=== PATIENT | female | born 1965 | race Two or more races ===

== ENCOUNTER 2019-06-24 14:08 | Emergency (ER) | payer MEDICARE, MEDICAID ==
[~2019-06-24 14:08] MED LIST: BENA5TAB14; HYDR-1421; METF850T; PIOG30TA20
[2019-06-24 15:15] LABS: Basophils # (auto) 0.1 uL; Basophils % (auto) 1.3 % (0.0-2.0); Eosinophils # (auto) 0.2 uL; Eosinophils % (auto) 2.4 % (0.0-7.0); Hematocrit 41.8 % (36.0-46.0); Hemoglobin 13.9 g/dL (12.2-16.2); Lymphocytes # (auto) 2.4 uL; Lymphocytes % (auto) 24.6 % (10.0-50.0); Mean Corpuscular Hemoglobin 27.3 pg (28.0-32.0); Mean Corpuscular Hgb Conc. 33.2 g/dL (32.0-36.0); Mean Corpuscular Volume 82.3 fL (80.0-100.0); Monocytes # (auto) 0.6 uL; Monocytes % (auto) 6.2 % (0.0-12.0); Neutrophils # (auto) 6.3 uL; Neutrophils % (auto) 65.5 % (37.0-80.0); Platelet Count (auto) 321 10^3/uL (140-450); Red Blood Cells 5.08 10^6/uL (4.0-5.20); Red Cell Distribution Width 14.6 % (11.8-14.3); White Blood Cell 9.6 10^3/uL (4.4-10.8)
[2019-06-24 15:31] LABS: Alanine Aminotransferase 35 U/L (13-56); Albumin 3.2 g/dL (3.4-5.0); Anion Gap 10 (5-15); Blood Urea Nitrogen 58 mg/dL (7-18); Calcium 8.9 mg/dL (8.5-10.1); Carbon Dioxide 24 mmol/L (21-32); Chloride 104 mmol/L (98-107); Glucose 151 mg/dL (74-106); Magnesium 2.3 mg/dL (1.6-2.6); Potassium 4.2 mmol/L (3.5-5.1); Sodium 138 mmol/L (136-145)
[2019-06-24 15:36] LABS: Alkaline Phosphatase 149 U/L (45-117); Aspartate Aminotransferase 58 U/L (15-37); BUN/Creatinine Ratio 41.4; Bilirubin, Total 0.4 mg/dL (0.2-1.0); GFR African American 50 mL/min; GFR Non-African American 41 mL/min; Total Protein 7.9 g/dL (6.4-8.2)
[2019-06-24] MEDS ORDERED: SODIUM CHLORIDE 0.9% 1,000 ML IV ONE (15:55)
[2019-06-24 16:35] LABS: INR 0.97 (0.9-1.15); Partial Thromboplastin Time 29.3 sec (23.64-32.05)
[2019-06-24] MEDS ORDERED: MORPHINE SULF INJ 2 MG/ML SYRINGE 1ML IV ONE (17:00)
[2019-06-24] MEDS ORDERED: ONDANSETRON HCL 4 MG/2 ML VIAL IV ONE (17:00)
[2019-06-24] MEDS ORDERED: SODIUM CHLORIDE 0.9% 500 ML IV ONE (17:00)
[2019-06-24 18:45] VITALS: BP 124/55
== END 2019-06-24 19:05 | disposition home or self-care (01) ==
LOC: ER 14:08
DX: R07.9 Chest pain, unspecified (principal); E11.21 Type 2 diabetes mellitus with diabetic nephropathy; E46 Unspecified protein-calorie malnutrition; I25.10 Atherosclerotic heart disease of native coronary artery without angina pectoris; I10 Essential (primary) hypertension; I25.2 Old myocardial infarction; F17.210 Nicotine dependence, cigarettes, uncomplicated; F12.90 Cannabis use, unspecified, uncomplicated; Z98.61 Coronary angioplasty status; Z79.84 Long term (current) use of oral hypoglycemic drugs; Z89.512 Acquired absence of left leg below knee; Z89.511 Acquired absence of right leg below knee
CPT/HCPCS: 36415; 71045; 80053; 83735; 84443; 84484; 85025; 85379; 85610; 85730; 93005; 94761; 96374; 99284; J2405; J7030; J7040; 96361

== ENCOUNTER 2020-01-08 10:45 | Inpatient (IN) | payer MEDICARE, MEDICAID ==
[~2020-01-08] VITALS: Ht 152.4 cm; Wt 101.6 kg
[2020-01-08 11:47] LABS: Basophils # (auto) 0.1 10 ^3/uL (0-0.2); Basophils % (auto) 0.9 % (0.0-2.0); Eosinophils # (auto) 0.3 10 ^3/uL (0-0.8); Eosinophils % (auto) 2.9 % (0.0-7.0); Hematocrit 43.8 % (36.0-46.0); Hemoglobin 14.4 g/dL (12.2-16.2); Lymphocytes # (auto) 1.7 10 ^3/uL (0.4-5.4); Lymphocytes % (auto) 18.2 % (10.0-50.0); Mean Corpuscular Hemoglobin 27.8 pg (28.0-32.0); Mean Corpuscular Volume 84.5 fL (80.0-100.0); Monocytes # (auto) 0.4 10 ^3/uL (0-1.3); Monocytes % (auto) 4.8 % (0.0-12.0); Neutrophils # (auto) 6.8 10 ^3/uL (1.6-8.6); Neutrophils % (auto) 73.2 % (37.0-80.0); Platelet Count (auto) 316 10^3/uL (140-450); Red Blood Cells 5.19 10^6/uL (4.0-5.20); Red Cell Distribution Width 14.7 % (11.8-14.3); White Blood Cell 9.3 10^3/uL (4.4-10.8)
[2020-01-08 12:03] LABS: Albumin 3.4 g/dL (3.4-5.0); Calcium 9.5 mg/dL (8.5-10.1); Magnesium 2.6 mg/dL (1.6-2.6); Potassium 4.3 mmol/L (3.5-5.1)
[2020-01-08 12:08] LABS: BUN/Creatinine Ratio 23.1; Bilirubin, Total 0.3 mg/dL (0.2-1.0); Total Protein 8.6 g/dL (6.4-8.2)
[2020-01-08] MEDS ORDERED: ONDANSETRON HCL 4 MG/2 ML VIAL IV ONE (13:45)
[2020-01-08] MEDS ORDERED: SODIUM CHLORIDE 0.9% 1,000 ML IV SCH (14:39)
[2020-01-08] MEDS ORDERED: traMADol HCL 50 MG TAB PO PRN (14:45)
[2020-01-08] MEDS ORDERED: LACTULOSE 20Gm/30ML SOLN PO PRN (14:45)
[2020-01-08] MEDS ORDERED: DEXTROSE (50%) 50ML SYRG IV PRN (14:45)
[2020-01-08] MEDS ORDERED: ALBUTEROL SULF 2.5 MG/0.5ML(0.5%) NEB SOLN NEB PRN (14:45)
[2020-01-08] MEDS ORDERED: PROMETHAZINE HCL 25 MG/ML 1ML IV PRN (14:45)
[2020-01-08] MEDS ORDERED: TEMAZEPAM 15 MG CAP PO PRN (14:45)
[2020-01-08] MEDS ORDERED: MORPHINE SULF INJ 2 MG/ML SYRINGE 1ML IV PRN (14:45)
[2020-01-08] MEDS ORDERED: NITROGLYCERIN 0.4 MG SL TAB SL PRN (14:45)
--- NOTE | 2020-01-08 16:01 | NUR ---
Telemetry admit from ER [facility] admitted to Telemetry unit after SBAR received. Patient oriented to Mehreen Clarke, primary RN, unit, room, bed, and unit policies regarding patient care and visiting hours. Patient now on continuous telemetry monitoring, tele box #7 and telemetry reading on arrival to unit is sinus bradycardia at 59 bpm. Patient placed on bedside oxygen, weighed by bedscale and encouraged to call if they need something. All questions and concerns addressed, patient verbalized understanding. POC discussed with patient, patient is comfortable at this time. Patient is A & O x 4. No s/s of distress. Bed is in lowest, locked position call light within reach. Son is at bedside. Will continue to monitor Q1h and PRN.
--- NOTE | 2020-01-08 16:15 | NUR ---
VITAL SIGNS UPON ARRIVAL BP 107/69, HR 59, O2 96% on 2L, RR 18, T. 97.9. No s/s of distress at this time, patient comfortable.
--- NOTE | 2020-01-08 16:30 | NUR ---
Dr. Iglesias at bedside. Orders received, read back and verified regarding home medications to be added to regimen. Will medicate per orders.
[2020-01-08] MEDS ORDERED: ATOR10TA52 PO (16:53)
[2020-01-08] MEDS ORDERED: INSLANTI SC (16:53)
[2020-01-08] MEDS ORDERED: CLOP75TA41 PO (16:53)
[2020-01-08] MEDS ORDERED: ISOS30TA4 PO (16:53)
[2020-01-08] MEDS ORDERED: FURO40TA4 PO (16:53)
[2020-01-08] MEDS ORDERED: INSUINJ18 SC (16:53)
[2020-01-08] MEDS ORDERED: CHOL20007 PO (16:53)
[2020-01-08] MEDS ORDERED: ESCI20TA PO (16:53)
[2020-01-08] MEDS ORDERED: LEVO25TA6 PO (16:53)
[2020-01-08] MEDS ORDERED: CAR3125T PO (16:53)
[2020-01-08] MEDS ORDERED: ASPI81CH43 PO (16:53)
[2020-01-08] MEDS ORDERED: ALPR0.25 PO (16:53)
[2020-01-08] MEDS ORDERED: LISI2.5T47 PO (16:53)
[2020-01-08] MEDS ORDERED: ACCU-CHEK COMFORT CURVE STRIP VI SCH (17:00)
[2020-01-08] MEDS ORDERED: InsuLIN REG 1unit/0.01ml Soln (100units/ml) SC SCH (17:00)
[2020-01-08 17:24] VITALS: BP 107/69
[2020-01-08] MEDS ORDERED: IPRATROPIUM BROM 0.5 MG/2.5ML INH SOL NEB SCH (18:00)
[2020-01-08] MEDS ORDERED: ALBUTEROL SULF 2.5 MG/0.5ML(0.5%) NEB SOLN NEB SCH (18:00)
--- NOTE | 2020-01-08 19:30 | NUR ---
Opening Shift Note Assumed care of patient, awake and alert. Son at bedside. Patient stating she no longer wants to stay and leave AMA. Spoke with patient about concerns and risks if leaving AMA. Patient verbalized understanding and states she would still like to leave. Informed patient that I would let MD know.
--- NOTE | 2020-01-08 20:17 | NUR ---
AMA Note [facility] states they want to leave the hospital Against Medical Advice (AMA). Patient encouraged to stay for further treatment/stabilization. MD Phan notified of patient's wishes. Patient advised of the risks and benefits of leaving AMA. Patient verbalized understanding. Patient encouraged to return to the ER if symptoms do not improve or worsen. IV removed, catheter intact, pressure dressing applied. Tele monitor removed and returned to tele room, spoke with Marlin.
[2020-01-08] MEDS ORDERED: CARVEDILOL 3.125 MG TAB PO SCH (22:00)
[2020-01-08] MEDS ORDERED: ATORVASTATIN 20 MG TAB PO SCH (22:00)
[2020-01-09] MEDS ORDERED: LEVOTHYROXINE SODIUM 25 MCG TAB PO SCH (07:00)
[2020-01-09] MEDS ORDERED: CLOPIDOGREL BISULFATE 75 MG TAB PO SCH (10:00)
[2020-01-09] MEDS ORDERED: FUROSEMIDE 40 MG TAB PO SCH (10:00)
[2020-01-09] MEDS ORDERED: NITROGLYCERIN 0.2MG/HR TOPICAL PATCH TD SCH (10:00)
[2020-01-09] MEDS ORDERED: ENOXAPARIN SOD 40 MG/0.4 ML SYRINGE SC SCH (10:00)
[2020-01-09] MEDS ORDERED: ASPirin 81 mg TAB PO SCH (10:00)
[2020-07-05] MEDS ORDERED: ATOR10TA52 PO (13:00)
[2020-07-05] MEDS ORDERED: PANT40T PO (13:00)
[2020-07-05] MEDS ORDERED: SACU1TAB PO (13:00)
[2020-07-05] MEDS ORDERED: LEVO50TA7 PO (13:00)
[2020-07-05] MEDS ORDERED: FURO40TA4 PO (13:00)
[2020-07-05] MEDS ORDERED: CLOP75TA41 PO (13:00)
[2020-07-05] MEDS ORDERED: CAR3125T PO (13:00)
[2020-07-05] MEDS ORDERED: ASPI81CH43 PO (13:00)
== END 2020-01-08 20:00 | disposition left against medical advice (07) | DRG 204 ==
LOC: ER 10:45 → TELE 10:46 → TELE-EAST 16:00
PROVIDERS: ADMIT Internal Medicine; ATTEND Internal Medicine
DX: R06.02 Shortness of breath (principal); Z68.41 Body mass index [BMI] 40.0-44.9, adult; E03.9 Hypothyroidism, unspecified; E11.9 Type 2 diabetes mellitus without complications; E78.5 Hyperlipidemia, unspecified; I10 Essential (primary) hypertension; I25.10 Atherosclerotic heart disease of native coronary artery without angina pectoris; I25.2 Old myocardial infarction; Z79.4 Long term (current) use of insulin; Z80.9 Family history of malignant neoplasm, unspecified; Z82.49 Family history of ischemic heart disease and other diseases of the circulatory system; Z83.3 Family history of diabetes mellitus; Z86.73 Personal history of transient ischemic attack (TIA), and cerebral infarction without residual deficits; Z87.891 Personal history of nicotine dependence; Z89.511 Acquired absence of right leg below knee; Z89.512 Acquired absence of left leg below knee; Z95.5 Presence of coronary angioplasty implant and graft; Z98.51 Tubal ligation status; Z53.29 Procedure and treatment not carried out because of patient's decision for other reasons; Z79.899 Other long term (current) drug therapy; E66.01 Morbid (severe) obesity due to excess calories
CPT/HCPCS: 36415; 71045; 80053; 82550; 82962; 83036; 83735; 83880; 84443; 84484; 85025; 85379; 85652; 86141; 93005; G0378; J1815; J2405

== ENCOUNTER 2020-06-15 07:21 | Inpatient (IN) | payer MEDICARE, MEDICAID ==
[~2020-06-15] VITALS: Ht 154.9 cm; Wt 123.0 kg
[~2020-06-15 07:21] MED LIST changes: +ALPR0.25 PO; +ASPI81CH43 PO; +ATOR10TA52 PO; -BENA5TAB14; +CAR3125T PO; +CHOL20007 PO; +CLOP75TA41 PO; +ESCI20TA PO; +FURO40TA4 PO; -HYDR-1421; +INSLANTI SC; +INSUINJ18 SC; +ISOS30TA4 PO; +LEVO25TA6 PO; +LISI2.5T47 PO; -METF850T; -PIOG30TA20
[2020-06-15] MEDS ORDERED: SODIUM CHLORIDE 0.9% 1,000 ML IV ONE ×2 (08:24→13:16)
[2020-06-15] MEDS ORDERED: FUROSEMIDE 20 MG/2 ML VIAL IV ONE (08:30)
[2020-06-15] MEDS ORDERED: MORPHINE SULFATE 4 MG/ML SYR/VIAL IV PRN ×2 (08:30→13:30)
[2020-06-15] MEDS ORDERED: SPIRONOLACTONE 25 MG TAB PO ONE (08:30)
[2020-06-15 08:34] LABS: Basophils # (auto) 0.1 10 ^3/uL (0-0.2); Basophils % (auto) 0.6 % (0.0-2.0); Eosinophils # (auto) 0.2 10 ^3/uL (0-0.8); Eosinophils % (auto) 1.6 % (0.0-7.0); Hematocrit 40.5 % (36.0-46.0); Lymphocytes # (auto) 1.5 10 ^3/uL (0.4-5.4); Lymphocytes % (auto) 11.3 % (10.0-50.0); Mean Corpuscular Hemoglobin 27.1 pg (28.0-32.0); Mean Corpuscular Hgb Conc. 32.1 g/dL (32.0-36.0); Mean Corpuscular Volume 84.2 fL (80.0-100.0); Monocytes # (auto) 0.6 10 ^3/uL (0-1.3); Monocytes % (auto) 4.8 % (0.0-12.0); Neutrophils # (auto) 10.7 10 ^3/uL (1.6-8.6); Neutrophils % (auto) 81.7 % (37.0-80.0); Platelet Count (auto) 365 10^3/uL (140-450); Red Blood Cells 4.81 10^6/uL (4.0-5.20); Red Cell Distribution Width 15.5 % (11.8-14.3)
[2020-06-15 08:36] LABS: Urine WBC None Seen /hpf (0 - 5)
[2020-06-15 08:43] LABS: Urine Bacteria FEW /hpf (None Seen); Urine Blood Negative /uL (Negative); Urine Hyaline Cast FEW /lpf (0 - 2); Urine Mucus FEW (None Seen); Urine Specific Gravity 1.014 (1.001-1.035)
[2020-06-15] MEDS ORDERED: ALBUTEROL SULF 2.5 MG/0.5ML(0.5%) NEB SOLN NEB ONE (08:45)
[2020-06-15] MEDS ORDERED: IPRATROPIUM BROM 0.5 MG/2.5ML INH SOL NEB ONE (08:45)
[2020-06-15 08:47] LABS: Albumin 3.4 g/dL (3.4-5.0)
[2020-06-15 08:52] LABS: Bilirubin, Total 0.5 mg/dL (0.2-1.0); INR 1.07 (0.9-1.15); Partial Thromboplastin Time 30.5 sec (23.0-31.2); Total Protein 8.3 g/dL (6.4-8.2)
[2020-06-15] MEDS ORDERED: ASPirin 81 mg TAB PO ONE (13:15)
[2020-06-15] MEDS ORDERED: ENOXAPARIN SOD 100 MG/1 ML SYRINGE SC ONE (13:15)
[2020-06-15] MEDS ORDERED: LORazepam 2MG/ML-1ML VIAL IV PRN (13:30)
[2020-06-15] MEDS ORDERED: FUROSEMIDE 40 MG/4 ML VIAL IV ONE (13:30)
[2020-06-15] MEDS ORDERED: MORPHINE SULF INJ 2 MG/ML SYRINGE 1ML IV PRN ×2 (13:30→14:45)
[2020-06-15] MEDS ORDERED: VANCOMYCIN PER PHARMACY 1,000 MG IV SCH (13:30)
[2020-06-15] MEDS ORDERED: NITROGLYCERIN 0.4 MG SL TAB SL PRN (13:30)
[2020-06-15] MEDS ORDERED: PREG100C PO (14:27)
[2020-06-15] MEDS ORDERED: ESCI20TA51 PO (14:27)
[2020-06-15] MEDS ORDERED: LEVO50TA7 PO (14:27)
[2020-06-15] MEDS ORDERED: ERGO1CAP12 PO (14:27)
[2020-06-15] MEDS ORDERED: INSU100I51 SC (14:30)
[2020-06-15] MEDS ORDERED: INSU1INJ5 SC (14:30)
[2020-06-15] MEDS ORDERED: DEXTROSE (50%) 50ML SYRG IV PRN (14:45)
[2020-06-15] MEDS ORDERED: VANCOMYCIN 1GM/250ML 250 ML IV SCH (15:00)
[2020-06-15 16:02] LABS: INR 1.06 (0.9-1.15); Partial Thromboplastin Time 23.9 sec (23.0-31.2)
[2020-06-15] MEDS: ACCU-CHEK COMFORT CURVE STRIP VI SCH ×2 (17:36→21:52)
[2020-06-15] MEDS: InsuLIN REG 1unit/0.01ml Soln (100units/ml) SC SCH ×2 (17:51→21:51)
[2020-06-15] MEDS: FUROSEMIDE 40 MG/4 ML VIAL IV SCH (17:52)
[2020-06-15] MEDS: HYDROCORTISONE SOD SUCC 100 MG/2ML INJ VIAL IV SCH (17:53)
[2020-06-15] MEDS: PIPERACILLIN-TAZOB 3.375GM 100 ML IV SCH (18:06)
[2020-06-15] MEDS: FAMOTIDINE (10MG/ML) 2ML VL IV SCH (21:49)
[2020-06-15] MEDS: PREGABALIN 25 MG CAP PO SCH (21:50)
[2020-06-15] MEDS: CARVEDILOL 3.125 MG TAB PO SCH (21:50)
[2020-06-16] MEDS: PIPERACILLIN-TAZOB 3.375GM 100 ML IV SCH ×3 (00:01→13:18)
[2020-06-16] MEDS: HYDROCORTISONE SOD SUCC 100 MG/2ML INJ VIAL IV SCH ×3 (00:01→13:17)
[2020-06-16] MEDS: FUROSEMIDE 40 MG/4 ML VIAL IV SCH ×2 (06:12→18:30)
[2020-06-16] MEDS: LEVOTHYROXINE SODIUM 50 MCG TAB PO SCH (06:41)
[2020-06-16] MEDS: ACCU-CHEK COMFORT CURVE STRIP VI SCH ×4 (06:43→22:00)
[2020-06-16] MEDS: InsuLIN REG 1unit/0.01ml Soln (100units/ml) SC SCH ×4 (06:43→23:01)
[2020-06-16 08:05] LABS: Hematocrit 36.5 % (36.0-46.0); Mean Corpuscular Hemoglobin 27.4 pg (28.0-32.0); Mean Corpuscular Hgb Conc. 32.8 g/dL (32.0-36.0); Mean Corpuscular Volume 83.7 fL (80.0-100.0); Platelet Count (auto) 308 10^3/uL (140-450); Red Blood Cells 4.37 10^6/uL (4.0-5.20); Red Cell Distribution Width 15.3 % (11.8-14.3); White Blood Cell 24.6 10^3/uL (4.4-10.8)
[2020-06-16 08:21] LABS: Basophils % (manual) 0 (0.0-2.0); Blast Cells 0; Eosinophils % (manual) 0 (0-7); Metamyelocytes % 0; Myelocytes % 0; Promyelocytes % 0; Reactive Lymphocytes 0
[2020-06-16 08:30] LABS: Band Neutrophils % (manual) 6; Lymphocytes % (manual) 3 (10.0-50.0); Monocytes % (manual) 6 (0-12)
[2020-06-16] MEDS ORDERED: LISINOPRIL 5 MG TAB PO SCH (10:00)
[2020-06-16] MEDS: ASPirin 81 mg TAB PO SCH (10:18)
[2020-06-16] MEDS: CITALOPRAM HYDROBR 20 MG TAB PO SCH (10:18)
[2020-06-16] MEDS: FAMOTIDINE (10MG/ML) 2ML VL IV SCH (10:18)
[2020-06-16] MEDS: CARVEDILOL 3.125 MG TAB PO SCH ×2 (10:20→22:41)
[2020-06-16] MEDS: PREGABALIN 25 MG CAP PO SCH (10:21)
[2020-06-16] MEDS ORDERED: ENOXAPARIN SOD 100 MG/1 ML SYRINGE SC ONE (13:30)
[2020-06-16 14:40] VITALS: BP 150/50
[2020-06-16] MEDS ORDERED: ZINC SULFATE 220mg CAP or TAB PO ONE (14:45)
[2020-06-16] MEDS ORDERED: ASCORBIC ACID 500 MG TAB PO ONE (14:45)
[2020-06-16 14:46] LABS: BUN/Creatinine Ratio 21.7; Calcium 9.2 mg/dL (8.5-10.1); Potassium 3.8 mmol/L (3.5-5.1)
[2020-06-16 15:06] LABS: CRP High Sensitivity 11.2 mg/dL (< 0.3)
[2020-06-16] MEDS: LINEZOLID 600MG/300ML 300 ML IV SCH (17:55)
[2020-06-16] MEDS: ALBUTEROL SULF HFA 90MCG INH 200DOSE IN SCH (21:54)
[2020-06-16] MEDS: BUDESONIDE (INHALATION) 180 MCG IH IN SCH (21:54)
[2020-06-16] MEDS: MEROPENEM 1GM IVPB 100 ML IV SCH (22:39)
[2020-06-16] MEDS: ATORVASTATIN 20 MG TAB PO SCH (22:41)
[2020-06-16] MEDS: ENOXAPARIN SOD 100 MG/1 ML SYRINGE SC SCH (23:02)
[2020-06-17] MEDS: LINEZOLID 600MG/300ML 300 ML IV SCH ×2 (05:45→17:10)
[2020-06-17] MEDS: ALBUTEROL SULF HFA 90MCG INH 200DOSE IN SCH (06:00)
[2020-06-17] MEDS: FUROSEMIDE 40 MG/4 ML VIAL IV SCH (06:00)
[2020-06-17] MEDS: BUDESONIDE (INHALATION) 180 MCG IH IN SCH (06:00)
[2020-06-17] MEDS: LEVOTHYROXINE SODIUM 50 MCG TAB PO SCH ×2 (07:00→08:17)
[2020-06-17 07:39] LABS: Basophils # (auto) 0 10 ^3/uL (0-0.2); Basophils % (auto) 0.1 % (0.0-2.0); Eosinophils # (auto) 0 10 ^3/uL (0-0.8); Hematocrit 32.2 % (36.0-46.0); Hemoglobin 10.4 g/dL (12.2-16.2); Lymphocytes % (auto) 3.8 % (10.0-50.0); Mean Corpuscular Hemoglobin 27.3 pg (28.0-32.0); Mean Corpuscular Hgb Conc. 32.3 g/dL (32.0-36.0); Mean Corpuscular Volume 84.5 fL (80.0-100.0); Monocytes # (auto) 1.3 10 ^3/uL (0-1.3); Monocytes % (auto) 4.9 % (0.0-12.0); Neutrophils # (auto) 23.9 10 ^3/uL (1.6-8.6); Neutrophils % (auto) 91.2 % (37.0-80.0); Platelet Count (auto) 267 10^3/uL (140-450); Red Blood Cells 3.81 10^6/uL (4.0-5.20); Red Cell Distribution Width 15.7 % (11.8-14.3); White Blood Cell 26.2 10^3/uL (4.4-10.8)
[2020-06-17 07:51] LABS: Albumin 2.6 g/dL (3.4-5.0); Calcium 8.3 mg/dL (8.5-10.1); Magnesium 1.8 mg/dL (1.6-2.6); Potassium 3.7 mmol/L (3.5-5.1)
[2020-06-17 07:56] LABS: BUN/Creatinine Ratio 18.4; Bilirubin, Total 0.9 mg/dL (0.2-1.0); Total Protein 6.8 g/dL (6.4-8.2)
[2020-06-17] MEDS: ACCU-CHEK COMFORT CURVE STRIP VI SCH ×4 (08:20→22:48)
[2020-06-17] MEDS: InsuLIN REG 1unit/0.01ml Soln (100units/ml) SC SCH ×4 (08:26→22:51)
[2020-06-17] MEDS: ASPirin 81 mg TAB PO SCH (09:30)
[2020-06-17] MEDS: CARVEDILOL 3.125 MG TAB PO SCH ×2 (09:31→22:00)
[2020-06-17] MEDS: CLOPIDOGREL BISULFATE 75 MG TAB PO SCH (09:31)
[2020-06-17] MEDS: CITALOPRAM HYDROBR 20 MG TAB PO SCH (09:31)
[2020-06-17] MEDS: ASCORBIC ACID 500 MG TAB PO SCH (09:31)
[2020-06-17] MEDS: MEROPENEM 1GM IVPB 100 ML IV SCH ×2 (09:44→22:43)
[2020-06-17] MEDS: FAMOTIDINE (10MG/ML) 2ML VL IV SCH (09:44)
[2020-06-17] MEDS: ENOXAPARIN SOD 100 MG/1 ML SYRINGE SC SCH (09:46)
[2020-06-17] MEDS ORDERED: ZINC SULFATE 220mg CAP or TAB PO SCH (10:00)
[2020-06-17] MEDS ORDERED: MAGNESIUM SULFATE 1GM/100ML 100 ML IV ONE (14:15)
[2020-06-17] MEDS ORDERED: ALBUTEROL SULF 2.5 MG/0.5ML(0.5%) NEB SOLN NEB PRN (14:15)
[2020-06-17] MEDS ORDERED: IPRATROPIUM BROM 0.5 MG/2.5ML INH SOL NEB PRN (14:15)
[2020-06-17] MEDS: SODIUM CHLORIDE 0.9% 1,000 ML IV SCH (15:45)
[2020-06-17] MEDS ORDERED: LORazepam 2MG/ML-1ML VIAL IV ONE (17:00)
[2020-06-17 17:35] LABS: Lactic Acid w/Reflex 2.3 mmol/L (0.4-2.0)
[2020-06-17 19:01] LABS: Urine Amorphous Crystal FEW /hpf (None Seen); Urine Bacteria FEW /hpf (None Seen); Urine Blood 3+ /uL (Negative); Urine WBC 25 /hpf (0 - 5)
[2020-06-17] MEDS ORDERED: diphenhdrAMINE HCL 50 MG/1 ML VL IV ONE (19:15)
[2020-06-17] MEDS: ATORVASTATIN 20 MG TAB PO SCH (22:00)
[2020-06-18] MEDS ORDERED: LORazepam 2MG/ML-1ML VIAL IV ONE (01:00)
[2020-06-18] MEDS ORDERED: diphenhdrAMINE HCL 50 MG/1 ML VL IV ONE ×2 (01:15→07:45)
[2020-06-18] MEDS: LINEZOLID 600MG/300ML 300 ML IV SCH ×2 (05:44→17:59)
[2020-06-18] MEDS: SODIUM CHLORIDE 0.9% 1,000 ML IV SCH ×3 (06:57→23:00)
[2020-06-18] MEDS: ACCU-CHEK COMFORT CURVE STRIP VI SCH ×4 (06:57→23:46)
[2020-06-18] MEDS: LEVOTHYROXINE SODIUM 50 MCG TAB PO SCH (06:58)
[2020-06-18] MEDS: InsuLIN REG 1unit/0.01ml Soln (100units/ml) SC SCH ×4 (07:06→23:48)
[2020-06-18] MEDS ORDERED: LORazepam 2MG/ML-1ML VIAL IM ONE (07:45)
[2020-06-18] MEDS: ASPirin 81 mg TAB PO SCH (10:00)
[2020-06-18] MEDS: CLOPIDOGREL BISULFATE 75 MG TAB PO SCH (10:00)
[2020-06-18] MEDS: ENOXAPARIN SOD 100 MG/1 ML SYRINGE SC SCH (10:00)
[2020-06-18] MEDS: CITALOPRAM HYDROBR 20 MG TAB PO SCH (10:00)
[2020-06-18] MEDS: CARVEDILOL 3.125 MG TAB PO SCH ×2 (10:00→22:00)
[2020-06-18] MEDS: ASCORBIC ACID 500 MG TAB PO SCH (10:00)
[2020-06-18 10:15] LABS: Basophils # (auto) 0 10 ^3/uL (0-0.2); Eosinophils # (auto) 0 10 ^3/uL (0-0.8); Lymphocytes # (auto) 0.8 10 ^3/uL (0.4-5.4); Monocytes # (auto) 1.2 10 ^3/uL (0-1.3)
[2020-06-18 10:16] LABS: Calcium 8.2 mg/dL (8.5-10.1); Magnesium 2.2 mg/dL (1.6-2.6); Potassium 3.8 mmol/L (3.5-5.1)
[2020-06-18 10:18] LABS: Basophils % (auto) 0.2 % (0.0-2.0); Hematocrit 31.5 % (36.0-46.0); Hemoglobin 10.1 g/dL (12.2-16.2); Lymphocytes % (auto) 2.7 % (10.0-50.0); Mean Corpuscular Hemoglobin 26.9 pg (28.0-32.0); Mean Corpuscular Hgb Conc. 31.9 g/dL (32.0-36.0); Mean Corpuscular Volume 84.3 fL (80.0-100.0); Monocytes % (auto) 4.2 % (0.0-12.0); Neutrophils # (auto) 26.1 10 ^3/uL (1.6-8.6); Neutrophils % (auto) 92.9 % (37.0-80.0); Platelet Count (auto) 260 10^3/uL (140-450); Red Blood Cells 3.74 10^6/uL (4.0-5.20); Red Cell Distribution Width 15.8 % (11.8-14.3); White Blood Cell 28.1 10^3/uL (4.4-10.8)
[2020-06-18] MEDS: FAMOTIDINE (10MG/ML) 2ML VL IV SCH (11:28)
[2020-06-18] MEDS: MEROPENEM 1GM IVPB 100 ML IV SCH (11:28)
[2020-06-18] MEDS ORDERED: SODIUM CHLORIDE 0.9% 1,000 ML IV ONE (13:00)
[2020-06-18] MEDS ORDERED: LORazepam 2MG/ML-1ML VIAL IV PRN (13:15)
[2020-06-18] MEDS: ACETYLCYSTEINE ORAL for CIN 20%(200MG/ML) 4ML PO SCH ×2 (13:30→22:00)
[2020-06-18] MEDS ORDERED: HALOPERIDOL LACTATE 5 MG/ML INJ VIAL ONE (15:24)
[2020-06-18] MEDS ORDERED: HALOPERIDOL LACTATE 5 MG/ML INJ VIAL IM PRN (15:30)
[2020-06-18 20:47] LABS: Lactic Acid w/Reflex 2.2 mmol/L (0.4-2.0)
[2020-06-18] MEDS ORDERED: MEROPENEM 500MG IVPB 50 ML IV SCH (22:00)
[2020-06-18] MEDS: ATORVASTATIN 20 MG TAB PO SCH (22:00)
[2020-06-19] VITALS (15 sets, daily range): BP systolic 112–147; BP diastolic 53–73
[2020-06-19] MEDS ORDERED: ERTAPENEM IV SCH (00:30)
[2020-06-19] MEDS ORDERED: ERTAPENEM SOD INJ 0.5 GM in SODIUM CHL 0.9% 50 ML IV SCH (01:00)
[2020-06-19] MEDS: LORazepam 2MG/ML-1ML VIAL IV PRN ×3 (02:13→10:21)
[2020-06-19] MEDS: LINEZOLID 600MG/300ML 300 ML IV SCH ×2 (05:33→21:21)
[2020-06-19 07:33] LABS: Basophils % (auto) 0.2 % (0.0-2.0); Eosinophils # (auto) 0 10 ^3/uL (0-0.8); Hemoglobin 10.1 g/dL (12.2-16.2); Neutrophils # (auto) 24.6 10 ^3/uL (1.6-8.6); White Blood Cell 26.9 10^3/uL (4.4-10.8)
[2020-06-19 07:35] LABS: Basophils # (auto) 0.1 10 ^3/uL (0-0.2); Hematocrit 31.6 % (36.0-46.0); Lymphocytes # (auto) 0.9 10 ^3/uL (0.4-5.4); Lymphocytes % (auto) 3.5 % (10.0-50.0); Mean Corpuscular Hgb Conc. 31.9 g/dL (32.0-36.0); Mean Corpuscular Volume 84.6 fL (80.0-100.0); Monocytes # (auto) 1.3 10 ^3/uL (0-1.3); Monocytes % (auto) 4.9 % (0.0-12.0); Neutrophils % (auto) 91.4 % (37.0-80.0); Platelet Count (auto) 247 10^3/uL (140-450); Red Blood Cells 3.73 10^6/uL (4.0-5.20); Red Cell Distribution Width 15.9 % (11.8-14.3)
[2020-06-19 08:00] LABS: Albumin 2.4 g/dL (3.4-5.0); BUN/Creatinine Ratio 22.5; Potassium 3.8 mmol/L (3.5-5.1)
[2020-06-19 08:02] LABS: Bilirubin, Total 0.6 mg/dL (0.2-1.0); Total Protein 6.9 g/dL (6.4-8.2)
[2020-06-19] MEDS: InsuLIN REG 1unit/0.01ml Soln (100units/ml) SC SCH ×4 (08:45→22:59)
[2020-06-19] MEDS: ACCU-CHEK COMFORT CURVE STRIP VI SCH ×4 (08:45→22:59)
[2020-06-19] MEDS: SODIUM CHLORIDE 0.9% 1,000 ML IV SCH (09:00)
[2020-06-19] MEDS ORDERED: LIDOCAINE W/ EPINEPHRINE 2% INJ 20ML VIAL ONE (09:06)
[2020-06-19] MEDS ORDERED: ANGIOMAX 250 MG VIAL IV ONE (09:07)
[2020-06-19] MEDS ORDERED: SODIUM CHL 0.9% 50 ML ONE ×2 (09:07→13:15)
[2020-06-19] MEDS ORDERED: MIDAZOLAM HCL 1MG/1ML-2 ML VIAL ONE (09:07)
[2020-06-19] MEDS ORDERED: LIDOCAINE 2%HCL (LOCAL ANESTH.) INJ 20ML MDV ONE (09:07)
[2020-06-19] MEDS ORDERED: IODIXANOL 320MG/ML 100ML BTL IV ONE ×3 (09:07→13:32)
[2020-06-19] MEDS ORDERED: fentaNYL CITRATE 100 MCG/2 ML VL ONE (09:07)
[2020-06-19] MEDS: ASPirin 81 mg TAB PO SCH (10:00)
[2020-06-19] MEDS: CARVEDILOL 3.125 MG TAB PO SCH ×2 (10:00→22:11)
[2020-06-19] MEDS: ACETYLCYSTEINE ORAL for CIN 20%(200MG/ML) 4ML PO SCH ×2 (10:00→22:15)
[2020-06-19] MEDS: ENOXAPARIN SOD 100 MG/1 ML SYRINGE SC SCH (10:21)
[2020-06-19] MEDS: PANTOPRAZOLE 40 MG/10 ML VIAL INJ IV SCH (10:21)
[2020-06-19] MEDS ORDERED: diphenhdrAMINE HCL 50 MG/1 ML VL ONE (12:57)
[2020-06-19] MEDS ORDERED: ATROPINE SULF 1 MG/10ml SYR ONE (13:16)
[2020-06-19] MEDS ORDERED: FUROSEMIDE 20 MG/2 ML VIAL ONE (13:45)
[2020-06-19] MEDS ORDERED: DOBUTamine 1000MCG/ML 250 ML IV ONE (13:49)
[2020-06-19] MEDS ORDERED: ASPirin-EC 325mg tab PO ONE (14:04)
[2020-06-19] MEDS ORDERED: CLOPIDOGREL 300 MG TAB PO ONE (14:04)
[2020-06-19] MEDS ORDERED: ASPirin 325 MG TAB ONE (14:06)
[2020-06-19] MEDS: FUROSEMIDE INJECTION 100 MG in D5W 5% 100 ML IV SCH (14:06)
[2020-06-19] MEDS ORDERED: CLOPIDOGREL 300 MG TAB ONE (14:06)
[2020-06-19] MEDS ORDERED: ETOMIDATE (2MG/ML) 20ML VIAL IV ONE (15:11)
[2020-06-19] MEDS ORDERED: SUCCINYLCHOLINE CHLORIDE 20 MG/ML 10ML VIAL IV ONE (15:11)
[2020-06-19] MEDS: MIDAZOLAM DRIP 50 mg/50mL 50 ML IV SCH ×2 (15:28→21:00)
[2020-06-19] MEDS: fentaNYL Drip 2500mCg/250mlNS 250 ML IV SCH (15:28)
[2020-06-19] MEDS ORDERED: fentaNYL Drip 2500mCg/250mlNS 250 ML IV ONE (15:28)
[2020-06-19] MEDS ORDERED: MIDAZOLAM DRIP 50 mg/50mL 50 ML IV ONE (15:29)
[2020-06-19] MEDS ORDERED: DOBUTamine 1000MCG/ML 250 ML IV SCH (16:52)
[2020-06-19] MEDS: DOBUTamine 1000MCG/ML 250 ML IV SCH ×2 (17:15→22:36)
[2020-06-19] MEDS ORDERED: SODIUM CHLORIDE 0.9% 1,000 ML IV SCH (17:15)
[2020-06-19] MEDS ORDERED: SODIUM CHLORIDE 0.9% 500 ML IV ONE (17:45)
[2020-06-19] MEDS: ATORVASTATIN 20 MG TAB PO SCH (22:10)
[2020-06-19] MEDS: ERTAPENEM SOD INJ 0.5 GM in SODIUM CHL 0.9% 50 ML IV SCH (23:01)
[2020-06-20] VITALS (85 sets, daily range): BP systolic 88–131; BP diastolic 40–68
[2020-06-20] MEDS: MIDAZOLAM DRIP 50 mg/50mL 50 ML IV SCH ×4 (00:41→15:55)
[2020-06-20] MEDS: FUROSEMIDE INJECTION 100 MG in D5W 5% 100 ML IV SCH ×2 (00:42→09:03)
[2020-06-20 04:57] LABS: Eosinophils # (auto) 0 10 ^3/uL (0-0.8); Eosinophils % (auto) 0.2 % (0.0-7.0); Mean Corpuscular Volume 83.1 fL (80.0-100.0); Neutrophils # (auto) 19.7 10 ^3/uL (1.6-8.6); White Blood Cell 21.6 10^3/uL (4.4-10.8)
[2020-06-20 04:58] LABS: Basophils # (auto) 0.1 10 ^3/uL (0-0.2); Basophils % (auto) 0.3 % (0.0-2.0); Hematocrit 30.9 % (36.0-46.0); Hemoglobin 10.1 g/dL (12.2-16.2); Lymphocytes % (auto) 4.5 % (10.0-50.0); Mean Corpuscular Hemoglobin 27.3 pg (28.0-32.0); Mean Corpuscular Hgb Conc. 32.8 g/dL (32.0-36.0); Monocytes # (auto) 0.8 10 ^3/uL (0-1.3); Monocytes % (auto) 3.8 % (0.0-12.0); Neutrophils % (auto) 91.2 % (37.0-80.0); Platelet Count (auto) 253 10^3/uL (140-450); Red Blood Cells 3.72 10^6/uL (4.0-5.20); Red Cell Distribution Width 15.8 % (11.8-14.3)
[2020-06-20 05:10] LABS: Albumin 2.1 g/dL (3.4-5.0); Calcium 7.7 mg/dL (8.5-10.1); Potassium 3.3 mmol/L (3.5-5.1)
[2020-06-20 05:15] LABS: BUN/Creatinine Ratio 31.3; Bilirubin, Total 0.6 mg/dL (0.2-1.0); Total Protein 6.6 g/dL (6.4-8.2)
[2020-06-20] MEDS: LINEZOLID 600MG/300ML 300 ML IV SCH ×2 (06:19→17:38)
[2020-06-20] MEDS: DOBUTamine 1000MCG/ML 250 ML IV SCH ×3 (06:19→22:07)
[2020-06-20] MEDS: ACCU-CHEK COMFORT CURVE STRIP VI SCH ×4 (06:22→22:06)
[2020-06-20] MEDS: InsuLIN REG 1unit/0.01ml Soln (100units/ml) SC SCH ×4 (06:22→22:12)
[2020-06-20] MEDS: ACETAMINOPHEN 325 MG TAB PO PRN (08:30)
[2020-06-20] MEDS: PANTOPRAZOLE 40 MG/10 ML VIAL INJ IV SCH (09:34)
[2020-06-20] MEDS: ERTAPENEM SOD INJ 0.5 GM in SODIUM CHL 0.9% 50 ML IV SCH (09:34)
[2020-06-20] MEDS: ASPirin 81 mg TAB PO SCH (09:35)
[2020-06-20] MEDS: ACETYLCYSTEINE ORAL for CIN 20%(200MG/ML) 4ML PO SCH ×3 (09:35→22:19)
[2020-06-20] MEDS: CARVEDILOL 3.125 MG TAB PO SCH ×2 (09:35→22:06)
[2020-06-20] MEDS: fentaNYL Drip 2500mCg/250mlNS 250 ML IV SCH (09:54)
[2020-06-20] MEDS ORDERED: ASPirin 300 MG RECTAL SUPP PR SCH (10:00)
[2020-06-20] MEDS ORDERED: FUROSEMIDE INJECTION 100 MG in D5W 5% 100 ML IV SCH (10:00)
[2020-06-20] MEDS: SOD CHL 0.9%/ KCL 20MEQ 1,000 ML IV SCH ×2 (10:16→22:04)
[2020-06-20 10:29] LABS: Creatinine, Urine 84 mg/dL (30.0-125.0); Sodium Urine 42 mmol/L (40-220)
[2020-06-20 10:38] LABS: Protein, Urine 20.7 mg/dL (0.0-11.9)
[2020-06-20] MEDS ORDERED: CLOPIDOGREL BISULFATE 75 MG TAB PO ONE (11:30)
[2020-06-20 13:38] LABS: INR 1.28 (0.9-1.15); Partial Thromboplastin Time 36.8 sec (23.0-31.2)
[2020-06-20] MEDS ORDERED: LIDOCAINE 1% (LOCAL ANESTH.) PF 5ml SDV ID ONE (20:00)
[2020-06-20] MEDS: SODIUM CHLOR 0.9% PF (SALINE LOCK) 10ML VIAL/SYR IV SCH (22:03)
[2020-06-20] MEDS: ATORVASTATIN 20 MG TAB PO SCH (22:05)
[2020-06-21] VITALS (105 sets, daily range): BP systolic 67–150; BP diastolic 21–87
[2020-06-21] MEDS: MIDAZOLAM DRIP 50 mg/50mL 50 ML IV SCH (00:15)
[2020-06-21 04:49] LABS: Basophils # (auto) 0 10 ^3/uL (0-0.2); Basophils % (auto) 0.1 % (0.0-2.0); Eosinophils # (auto) 0.2 10 ^3/uL (0-0.8); Eosinophils % (auto) 0.8 % (0.0-7.0); Hematocrit 27.7 % (36.0-46.0); Hemoglobin 8.8 g/dL (12.2-16.2); Lymphocytes # (auto) 0.8 10 ^3/uL (0.4-5.4); Lymphocytes % (auto) 4.1 % (10.0-50.0); Mean Corpuscular Hemoglobin 27.1 pg (28.0-32.0); Mean Corpuscular Hgb Conc. 31.9 g/dL (32.0-36.0); Mean Corpuscular Volume 84.8 fL (80.0-100.0); Monocytes # (auto) 0.8 10 ^3/uL (0-1.3); Neutrophils # (auto) 18.5 10 ^3/uL (1.6-8.6); Platelet Count (auto) 204 10^3/uL (140-450); Red Blood Cells 3.27 10^6/uL (4.0-5.20); Red Cell Distribution Width 16.3 % (11.8-14.3); White Blood Cell 20.3 10^3/uL (4.4-10.8)
[2020-06-21 05:08] LABS: Potassium 3.7 mmol/L (3.5-5.1)
[2020-06-21 05:18] LABS: Albumin 1.7 g/dL (3.4-5.0); Bilirubin, Total 0.6 mg/dL (0.2-1.0); Calcium 7.1 mg/dL (8.5-10.1); Total Protein 5.8 g/dL (6.4-8.2)
[2020-06-21] MEDS: LINEZOLID 600MG/300ML 300 ML IV SCH ×2 (05:37→18:33)
[2020-06-21] MEDS ORDERED: SODIUM CHLORIDE 0.9% 500 ML IV ONE (06:15)
[2020-06-21] MEDS: ACCU-CHEK COMFORT CURVE STRIP VI SCH ×3 (06:29→18:29)
[2020-06-21] MEDS: InsuLIN REG 1unit/0.01ml Soln (100units/ml) SC SCH ×3 (06:29→18:31)
[2020-06-21] MEDS: fentaNYL Drip 2500mCg/250mlNS 250 ML IV SCH (06:30)
[2020-06-21] MEDS: SOD CHL 0.9%/ KCL 20MEQ 1,000 ML IV SCH ×2 (08:29→11:07)
[2020-06-21] MEDS: DOBUTamine 1000MCG/ML 250 ML IV SCH ×2 (08:32→15:16)
[2020-06-21] MEDS ORDERED: NOREPINEPHRINE 8 MG/250ML KIT 250 ML IV ONE (08:47)
[2020-06-21] MEDS: NOREPINEPHRINE 8 MG/250ML KIT 250 ML IV SCH (09:25)
[2020-06-21] MEDS ORDERED: TPN PER PHARMACY 0 ML IV SCH (10:30)
[2020-06-21] MEDS: ASPirin 81 mg TAB PO SCH (11:06)
[2020-06-21] MEDS: CLOPIDOGREL BISULFATE 75 MG TAB PO SCH (11:06)
[2020-06-21] MEDS: PANTOPRAZOLE 40 MG/10 ML VIAL INJ IV SCH (11:06)
[2020-06-21] MEDS: SODIUM CHLOR 0.9% PF (SALINE LOCK) 10ML VIAL/SYR IV SCH ×2 (11:06→22:29)
[2020-06-21] MEDS: CARVEDILOL 3.125 MG TAB PO SCH ×2 (11:07→22:00)
[2020-06-21] MEDS: MEROPENEM 1GM IVPB 100 ML IV SCH ×2 (11:07→23:03)
[2020-06-21 11:15] LABS: Pre Albumin 4.8 mg/dL (20.0-40.0)
[2020-06-21] MEDS ORDERED: SODIUM PHOSPHATES 20 MEQ in SODIUM CHL 0.9% 100 ML IV ONE (13:00)
[2020-06-21 19:09] LABS: Basophils # (auto) 0 10 ^3/uL (0-0.2); Basophils % (auto) 0.1 % (0.0-2.0); Eosinophils # (auto) 0.2 10 ^3/uL (0-0.8); Neutrophils # (auto) 18.8 10 ^3/uL (1.6-8.6); Red Blood Cells 3.86 10^6/uL (4.0-5.20); White Blood Cell 20.4 10^3/uL (4.4-10.8)
[2020-06-21 19:10] LABS: Albumin 1.7 g/dL (3.4-5.0); Calcium 8.4 mg/dL (8.5-10.1); Potassium 3.9 mmol/L (3.5-5.1)
[2020-06-21 19:11] LABS: Eosinophils % (auto) 0.8 % (0.0-7.0); Hematocrit 32.8 % (36.0-46.0); Hemoglobin 10.3 g/dL (12.2-16.2); Lymphocytes # (auto) 0.7 10 ^3/uL (0.4-5.4); Lymphocytes % (auto) 3.4 % (10.0-50.0); Mean Corpuscular Hemoglobin 26.8 pg (28.0-32.0); Mean Corpuscular Hgb Conc. 31.5 g/dL (32.0-36.0); Monocytes # (auto) 0.8 10 ^3/uL (0-1.3); Monocytes % (auto) 3.8 % (0.0-12.0); Neutrophils % (auto) 91.9 % (37.0-80.0); Platelet Count (auto) 210 10^3/uL (140-450); Red Cell Distribution Width 16.5 % (11.8-14.3)
[2020-06-21 19:14] LABS: BUN/Creatinine Ratio 32.6; Bilirubin, Total 1.3 mg/dL (0.2-1.0)
[2020-06-21] MEDS ORDERED: TPN PER PHARMACY IV NR ×8 (20:00)
[2020-06-21] MEDS ORDERED: DEXTROSE (50%) 50ML SYRG IV SCH (20:00)
[2020-06-21] MEDS: ATORVASTATIN 20 MG TAB PO SCH (22:00)
[2020-06-22] VITALS (105 sets, daily range): BP systolic 85–155; BP diastolic 30–73
[2020-06-22] MEDS: ACCU-CHEK COMFORT CURVE STRIP VI SCH ×4 (00:30→17:57)
[2020-06-22] MEDS: InsuLIN REG 1unit/0.01ml Soln (100units/ml) SC SCH ×4 (00:30→18:02)
[2020-06-22] MEDS: DOBUTamine 1000MCG/ML 250 ML IV SCH ×3 (01:00→14:57)
[2020-06-22 05:25] LABS: Basophils # (auto) 0 10 ^3/uL (0-0.2); Basophils % (auto) 0.2 % (0.0-2.0); Eosinophils # (auto) 0.2 10 ^3/uL (0-0.8); Eosinophils % (auto) 0.8 % (0.0-7.0); Hematocrit 30.1 % (36.0-46.0); Hemoglobin 9.7 g/dL (12.2-16.2); Lymphocytes # (auto) 0.8 10 ^3/uL (0.4-5.4); Lymphocytes % (auto) 4.4 % (10.0-50.0); Mean Corpuscular Hemoglobin 26.9 pg (28.0-32.0); Mean Corpuscular Hgb Conc. 32.3 g/dL (32.0-36.0); Mean Corpuscular Volume 83.2 fL (80.0-100.0); Monocytes # (auto) 0.6 10 ^3/uL (0-1.3); Monocytes % (auto) 3.1 % (0.0-12.0); Neutrophils # (auto) 16.3 10 ^3/uL (1.6-8.6); Neutrophils % (auto) 91.5 % (37.0-80.0); Nucleated Red Blood Cells % 0.1 %; Platelet Count (auto) 192 10^3/uL (140-450); Red Blood Cells 3.61 10^6/uL (4.0-5.20); Red Cell Distribution Width 16.3 % (11.8-14.3); White Blood Cell 17.8 10^3/uL (4.4-10.8)
[2020-06-22 05:48] LABS: Calcium 7.1 mg/dL (8.5-10.1); Potassium 3.6 mmol/L (3.5-5.1)
[2020-06-22 05:54] LABS: Albumin 1.6 g/dL (3.4-5.0); BUN/Creatinine Ratio 36.5; Bilirubin, Total 0.5 mg/dL (0.2-1.0); Total Protein 5.6 g/dL (6.4-8.2)
[2020-06-22] MEDS: SOD CHL 0.9%/ KCL 20MEQ 1,000 ML IV SCH (06:30)
[2020-06-22] MEDS: LINEZOLID 600MG/300ML 300 ML IV SCH ×2 (06:30→18:05)
[2020-06-22] MEDS ORDERED: SOD CHL 0.9%/ KCL 20MEQ 1,000 ML IV SCH (08:45)
[2020-06-22] MEDS ORDERED: POTASSIUM CHL 20MEQ/100ML 100 ML IV ONE (09:00)
[2020-06-22] MEDS: FUROSEMIDE 100 MG/10ML VIAL IV SCH ×2 (09:01→18:04)
[2020-06-22] MEDS: NOREPINEPHRINE 8 MG/250ML KIT 250 ML IV SCH (09:15)
[2020-06-22] MEDS: CLOPIDOGREL BISULFATE 75 MG TAB PO SCH (09:25)
[2020-06-22] MEDS: PANTOPRAZOLE 40 MG/10 ML VIAL INJ IV SCH (09:25)
[2020-06-22] MEDS: ASPirin 81 mg TAB PO SCH (09:25)
[2020-06-22] MEDS: SODIUM CHLOR 0.9% PF (SALINE LOCK) 10ML VIAL/SYR IV SCH ×2 (09:25→21:20)
[2020-06-22] MEDS: CARVEDILOL 3.125 MG TAB PO SCH ×2 (09:26→21:20)
[2020-06-22] MEDS: MEROPENEM 1GM IVPB 100 ML IV SCH ×2 (10:40→23:00)
[2020-06-22] MEDS: fentaNYL Drip 2500mCg/250mlNS 250 ML IV SCH (15:28)
[2020-06-22] MEDS ORDERED: EPINEPHrine HCL 1 MG/10 ML SYRG IV ONE (17:52)
[2020-06-22] MEDS ORDERED: SODIUM BICARBONATE 8.4 % INJ 50ML VIAL IV ONE (17:52)
[2020-06-22] MEDS ORDERED: TPN PER PHARMACY IV NR ×8 (20:00)
[2020-06-22] MEDS: ATORVASTATIN 20 MG TAB PO SCH (21:21)
[2020-06-22] MEDS ORDERED: INSULIN LANTUS (GLARGINE) 1 /0.01ml (100units/ml) SC SCH (22:00)
[2020-06-23] VITALS (90 sets, daily range): BP systolic 93–153; BP diastolic 33–124
[2020-06-23 03:56] LABS: Basophils # (auto) 0 10 ^3/uL (0-0.2); Basophils % (auto) 0.2 % (0.0-2.0); Eosinophils # (auto) 0.2 10 ^3/uL (0-0.8); Eosinophils % (auto) 1.6 % (0.0-7.0); Hematocrit 30.3 % (36.0-46.0); Hemoglobin 7.6 g/dL (12.2-16.2); Lymphocytes # (auto) 0.6 10 ^3/uL (0.4-5.4); Lymphocytes % (auto) 4.2 % (10.0-50.0); Mean Corpuscular Hemoglobin 22.9 pg (28.0-32.0); Mean Corpuscular Hgb Conc. 25.1 g/dL (32.0-36.0); Monocytes # (auto) 0.8 10 ^3/uL (0-1.3); Monocytes % (auto) 5.1 % (0.0-12.0); Neutrophils % (auto) 88.9 % (37.0-80.0); Nucleated Red Blood Cells % 0.1 %; Platelet Count (auto) 140 10^3/uL (140-450); Red Blood Cells 3.33 10^6/uL (4.0-5.20); Red Cell Distribution Width 17.8 % (11.8-14.3); White Blood Cell 14.7 10^3/uL (4.4-10.8)
[2020-06-23 04:06] LABS: Calcium 7.7 mg/dL (8.5-10.1); Potassium 4.8 mmol/L (3.5-5.1)
[2020-06-23 04:12] LABS: Albumin 1.2 g/dL (3.4-5.0); BUN/Creatinine Ratio 37.1; Bilirubin, Total 0.5 mg/dL (0.2-1.0); Magnesium 2.3 mg/dL (1.6-2.6); Phosphorus 2.8 mg/dL (2.5-4.90)
[2020-06-23] MEDS: DOBUTamine 1000MCG/ML 250 ML IV SCH ×3 (04:35→18:40)
[2020-06-23] MEDS: LINEZOLID 600MG/300ML 300 ML IV SCH ×2 (04:35→18:18)
[2020-06-23] MEDS: ACCU-CHEK COMFORT CURVE STRIP VI SCH ×5 (05:49→23:19)
[2020-06-23] MEDS: InsuLIN REG 1unit/0.01ml Soln (100units/ml) SC SCH ×5 (05:49→23:27)
[2020-06-23] MEDS: FUROSEMIDE 100 MG/10ML VIAL IV SCH ×2 (05:49→18:47)
[2020-06-23] MEDS: MEROPENEM 1GM IVPB 100 ML IV SCH ×2 (10:22→23:17)
[2020-06-23] MEDS: ASPirin 81 mg TAB PO SCH (10:22)
[2020-06-23] MEDS: CLOPIDOGREL BISULFATE 75 MG TAB PO SCH (10:22)
[2020-06-23] MEDS: CARVEDILOL 3.125 MG TAB PO SCH ×2 (10:22→22:02)
[2020-06-23] MEDS: PANTOPRAZOLE 40 MG/10 ML VIAL INJ IV SCH (10:24)
[2020-06-23] MEDS: SODIUM CHLOR 0.9% PF (SALINE LOCK) 10ML VIAL/SYR IV SCH ×2 (10:24→20:07)
[2020-06-23] MEDS: SODIUM CHLORIDE 0.9% 1,000 ML IV SCH (13:23)
[2020-06-23 13:59] LABS: % Iron Saturation 17.8 % (15-50)
[2020-06-23] MEDS: ACETAMINOPHEN 325 MG TAB PO PRN (18:31)
[2020-06-23] MEDS ORDERED: TPN PER PHARMACY IV NR ×9 (20:00)
[2020-06-23] MEDS: ATORVASTATIN 20 MG TAB PO SCH (22:01)
[2020-06-23] MEDS: INSULIN LANTUS (GLARGINE) 1 /0.01ml (100units/ml) SC SCH (22:02)
[2020-06-24] VITALS (70 sets, daily range): BP systolic 110–177; BP diastolic 35–83
[2020-06-24] MEDS: ACETAMINOPHEN 325 MG TAB PO PRN (00:27)
[2020-06-24] MEDS: LINEZOLID 600MG/300ML 300 ML IV SCH ×2 (04:49→17:30)
[2020-06-24] MEDS: FUROSEMIDE 100 MG/10ML VIAL IV SCH ×2 (05:01→18:00)
[2020-06-24] MEDS: SODIUM CHLORIDE 0.9% 1,000 ML IV SCH (05:36)
[2020-06-24] MEDS: ACCU-CHEK COMFORT CURVE STRIP VI SCH ×3 (05:37→18:00)
[2020-06-24 05:39] LABS: Basophils # (auto) 0.1 10 ^3/uL (0-0.2); Basophils % (auto) 0.4 % (0.0-2.0); Eosinophils # (auto) 0.3 10 ^3/uL (0-0.8); Eosinophils % (auto) 2.2 % (0.0-7.0); Hematocrit 33.7 % (36.0-46.0); Hemoglobin 11.2 g/dL (12.2-16.2); Lymphocytes # (auto) 0.9 10 ^3/uL (0.4-5.4); Lymphocytes % (auto) 6.3 % (10.0-50.0); Mean Corpuscular Hemoglobin 27.7 pg (28.0-32.0); Mean Corpuscular Hgb Conc. 33.2 g/dL (32.0-36.0); Mean Corpuscular Volume 83.5 fL (80.0-100.0); Monocytes # (auto) 0.6 10 ^3/uL (0-1.3); Monocytes % (auto) 4.2 % (0.0-12.0); Neutrophils # (auto) 12.7 10 ^3/uL (1.6-8.6); Neutrophils % (auto) 86.9 % (37.0-80.0); Platelet Count (auto) 157 10^3/uL (140-450); Red Blood Cells 4.03 10^6/uL (4.0-5.20); Red Cell Distribution Width 15.8 % (11.8-14.3); White Blood Cell 14.7 10^3/uL (4.4-10.8)
[2020-06-24 06:04] LABS: Albumin 1.6 g/dL (3.4-5.0); Calcium 7.9 mg/dL (8.5-10.1); Magnesium 1.6 mg/dL (1.6-2.6)
[2020-06-24] MEDS: DOBUTamine 1000MCG/ML 250 ML IV SCH ×2 (06:09→14:23)
[2020-06-24 06:14] LABS: BUN/Creatinine Ratio 38.9; Bilirubin, Total 0.7 mg/dL (0.2-1.0); Phosphorus 1.8 mg/dL (2.5-4.90); Total Protein 6.1 g/dL (6.4-8.2)
[2020-06-24] MEDS: InsuLIN REG 1unit/0.01ml Soln (100units/ml) SC SCH ×3 (06:41→18:00)
[2020-06-24] MEDS: CLOPIDOGREL BISULFATE 75 MG TAB PO SCH (09:57)
[2020-06-24] MEDS: PANTOPRAZOLE 40 MG/10 ML VIAL INJ IV SCH (09:57)
[2020-06-24] MEDS: ASPirin 81 mg TAB PO SCH (09:57)
[2020-06-24] MEDS: CARVEDILOL 3.125 MG TAB PO SCH (09:58)
[2020-06-24] MEDS: SODIUM CHLOR 0.9% PF (SALINE LOCK) 10ML VIAL/SYR IV SCH ×2 (10:00→22:09)
[2020-06-24] MEDS ORDERED: POTASSIUM PHOSPHATE 22 MEQ in SODIUM CHL 0.9% 100 ML IV ONE (10:30)
[2020-06-24] MEDS: MEROPENEM 1GM IVPB 100 ML IV SCH ×2 (11:00→22:08)
[2020-06-24] MEDS ORDERED: MAGNESIUM SULFATE 1GM/100ML 100 ML IV ONE (11:00)
[2020-06-24] MEDS: FLUCONAZOLE 200MG/100ML 100 ML IV SCH (12:00)
[2020-06-24] MEDS: POTASSIUM CHL 20MEQ/100ML 100 ML IV SCH ×2 (13:30→15:30)
[2020-06-24] MEDS ORDERED: DOBUTamine 1000MCG/ML 250 ML IV ONE (14:38)
[2020-06-24] MEDS ORDERED: TPN PER PHARMACY IV NR ×11 (20:00)
[2020-06-24] MEDS ORDERED: InsuLIN REG 1unit/0.01ml Soln (100units/ml) SC SCH ×2 (20:15)
[2020-06-24] MEDS ORDERED: LORazepam 2MG/ML-1ML VIAL IV PRN (20:15)
[2020-06-24] MEDS ORDERED: ERTAPENEM SOD INJ 0.5 GM in SODIUM CHL 0.9% 50 ML IV SCH (20:15)
[2020-06-24] MEDS ORDERED: NITROGLYCERIN 0.4 MG SL TAB SL PRN (20:15)
[2020-06-24] MEDS ORDERED: ASPirin 81 mg TAB PO SCH (20:15)
[2020-06-24] MEDS ORDERED: ACCU-CHEK COMFORT CURVE STRIP VI SCH (20:15)
[2020-06-24] MEDS ORDERED: DEXTROSE (50%) 50ML SYRG IV PRN (20:15)
[2020-06-24] MEDS ORDERED: HALOPERIDOL LACTATE 5 MG/ML INJ VIAL IM PRN (20:15)
[2020-06-24] MEDS ORDERED: MORPHINE SULF INJ 2 MG/ML SYRINGE 1ML IV PRN ×2 (20:15)
[2020-06-24] MEDS: INSULIN LANTUS (GLARGINE) 1 /0.01ml (100units/ml) SC SCH (20:48)
[2020-06-24] MEDS ORDERED: DEXTROSE (50%) 50ML SYRG IV SCH (21:30)
[2020-06-24] MEDS ORDERED: ACETYLCYSTEINE ORAL for CIN 20%(200MG/ML) 4ML PO SCH (22:00)
[2020-06-24] MEDS ORDERED: MEROPENEM 1GM IVPB 100 ML IV SCH (22:00)
[2020-06-24] MEDS ORDERED: CARVEDILOL 3.125 MG TAB PO SCH (22:00)
[2020-06-24] MEDS: ATORVASTATIN 20 MG TAB PO SCH (22:09)
[2020-06-25] VITALS (20 sets, daily range): BP systolic 111–154; BP diastolic 52–89
[2020-06-25] MEDS: InsuLIN REG 1unit/0.01ml Soln (100units/ml) SC SCH ×5 (01:34→22:39)
[2020-06-25] MEDS: ACCU-CHEK COMFORT CURVE STRIP VI SCH ×5 (01:35→23:03)
[2020-06-25] MEDS: SODIUM CHLORIDE 0.9% 1,000 ML IV SCH ×2 (01:45→15:15)
[2020-06-25] MEDS: DOBUTamine 1000MCG/ML 250 ML IV SCH ×3 (06:16→17:14)
[2020-06-25] MEDS: LINEZOLID 600MG/300ML 300 ML IV SCH ×2 (06:16→17:12)
[2020-06-25 06:35] LABS: Basophils # (auto) 0 10 ^3/uL (0-0.2); Basophils % (auto) 0.3 % (0.0-2.0); Eosinophils # (auto) 0.2 10 ^3/uL (0-0.8); Eosinophils % (auto) 1.8 % (0.0-7.0); Hematocrit 35.5 % (36.0-46.0); Lymphocytes # (auto) 0.9 10 ^3/uL (0.4-5.4); Lymphocytes % (auto) 7.1 % (10.0-50.0); Mean Corpuscular Hgb Conc. 33.8 g/dL (32.0-36.0); Mean Corpuscular Volume 82.8 fL (80.0-100.0); Monocytes # (auto) 0.7 10 ^3/uL (0-1.3); Monocytes % (auto) 5.7 % (0.0-12.0); Neutrophils # (auto) 10.5 10 ^3/uL (1.6-8.6); Neutrophils % (auto) 85.1 % (37.0-80.0); Platelet Count (auto) 131 10^3/uL (140-450); Red Blood Cells 4.29 10^6/uL (4.0-5.20); Red Cell Distribution Width 16.3 % (11.8-14.3); White Blood Cell 12.4 10^3/uL (4.4-10.8)
[2020-06-25 06:56] LABS: Potassium 3.1 mmol/L (3.5-5.1)
[2020-06-25] MEDS ORDERED: LEVOTHYROXINE SODIUM 50 MCG TAB PO SCH (07:00)
[2020-06-25 07:08] LABS: Albumin 1.7 g/dL (3.4-5.0); Bilirubin, Total 0.4 mg/dL (0.2-1.0); Calcium 8.2 mg/dL (8.5-10.1); Magnesium 2.1 mg/dL (1.6-2.6); Total Protein 6.4 g/dL (6.4-8.2)
[2020-06-25] MEDS: MEROPENEM 1GM IVPB 100 ML IV SCH ×3 (08:35→23:03)
[2020-06-25] MEDS: SODIUM CHLOR 0.9% PF (SALINE LOCK) 10ML VIAL/SYR IV SCH ×2 (09:46→23:03)
[2020-06-25] MEDS: PANTOPRAZOLE 40 MG/10 ML VIAL INJ IV SCH (09:46)
[2020-06-25] MEDS: POTASSIUM CHL 20MEQ/100ML 100 ML IV SCH ×2 (09:46→11:13)
[2020-06-25] MEDS: FLUCONAZOLE 200MG/100ML 100 ML IV SCH ×2 (09:46→11:13)
[2020-06-25] MEDS ORDERED: FUROSEMIDE 40 MG TAB PO SCH (10:00)
[2020-06-25] MEDS ORDERED: ASPirin 81 mg TAB PO SCH ×2 (10:00)
[2020-06-25] MEDS ORDERED: ERGOCALCIFEROL 50,000 UNIT(1.25MG) CAP PO SCH (10:00)
[2020-06-25] MEDS ORDERED: CLOPIDOGREL BISULFATE 75 MG TAB PO SCH (10:00)
[2020-06-25] MEDS ORDERED: ASPirin 81 mg TAB PO ONE (12:30)
[2020-06-25] MEDS ORDERED: ALPRAZolam 0.5 MG TAB PO PRN (12:30)
[2020-06-25] MEDS ORDERED: HYALURONIDASE 150 UNIT/1 ML SUBCUT ONE (12:30)
[2020-06-25] MEDS: CLOPIDOGREL BISULFATE 75 MG TAB PO SCH (14:07)
[2020-06-25] MEDS ORDERED: TPN PER PHARMACY IV NR ×11 (20:00)
[2020-06-25] MEDS: INSULIN LANTUS (GLARGINE) 1 /0.01ml (100units/ml) SC SCH (22:39)
[2020-06-25] MEDS: ATORVASTATIN 20 MG TAB PO SCH (23:02)
[2020-06-26] VITALS (12 sets, daily range): BP systolic 119–148; BP diastolic 54–106
[2020-06-26] MEDS: DOBUTamine 1000MCG/ML 250 ML IV SCH ×4 (04:03→23:00)
[2020-06-26] MEDS: LINEZOLID 600MG/300ML 300 ML IV SCH ×2 (04:03→16:46)
[2020-06-26 04:40] LABS: Basophils # (auto) 0 10 ^3/uL (0-0.2); Basophils % (auto) 0.4 % (0.0-2.0); Eosinophils # (auto) 0.2 10 ^3/uL (0-0.8); Eosinophils % (auto) 2.6 % (0.0-7.0); Hematocrit 25.8 % (36.0-46.0); Hemoglobin 8.6 g/dL (12.2-16.2); Lymphocytes # (auto) 0.7 10 ^3/uL (0.4-5.4); Lymphocytes % (auto) 9.7 % (10.0-50.0); Mean Corpuscular Hemoglobin 28.2 pg (28.0-32.0); Mean Corpuscular Hgb Conc. 33.5 g/dL (32.0-36.0); Mean Corpuscular Volume 84.1 fL (80.0-100.0); Monocytes # (auto) 0.5 10 ^3/uL (0-1.3); Monocytes % (auto) 7.8 % (0.0-12.0); Neutrophils # (auto) 5.5 10 ^3/uL (1.6-8.6); Neutrophils % (auto) 79.5 % (37.0-80.0); Platelet Count (auto) 73 10^3/uL (140-450); Red Blood Cells 3.07 10^6/uL (4.0-5.20); Red Cell Distribution Width 15.9 % (11.8-14.3); White Blood Cell 6.9 10^3/uL (4.4-10.8)
[2020-06-26 04:58] LABS: Albumin 1.6 g/dL (3.4-5.0); Calcium 7.8 mg/dL (8.5-10.1); Potassium 3.2 mmol/L (3.5-5.1)
[2020-06-26 05:02] LABS: BUN/Creatinine Ratio 44.2; Bilirubin, Total 0.4 mg/dL (0.2-1.0); Phosphorus 2.8 mg/dL (2.5-4.90); Pre Albumin 12.8 mg/dL (20.0-40.0); Total Protein 5.7 g/dL (6.4-8.2)
[2020-06-26] MEDS: InsuLIN REG 1unit/0.01ml Soln (100units/ml) SC SCH ×3 (06:35→17:36)
[2020-06-26] MEDS: ACCU-CHEK COMFORT CURVE STRIP VI SCH ×3 (06:36→17:30)
[2020-06-26] MEDS: MEROPENEM 1GM IVPB 100 ML IV SCH ×3 (06:37→21:53)
[2020-06-26] MEDS: SODIUM CHLORIDE 0.9% 1,000 ML IV SCH (07:55)
[2020-06-26] MEDS: PANTOPRAZOLE 40 MG/10 ML VIAL INJ IV SCH (09:42)
[2020-06-26] MEDS: CLOPIDOGREL BISULFATE 75 MG TAB PO SCH (09:42)
[2020-06-26] MEDS: FLUCONAZOLE 200MG/100ML 100 ML IV SCH ×2 (09:42→11:31)
[2020-06-26] MEDS: SODIUM CHLOR 0.9% PF (SALINE LOCK) 10ML VIAL/SYR IV SCH ×2 (09:58→21:53)
[2020-06-26] MEDS: POTASSIUM CHL 20MEQ/100ML 100 ML IV SCH ×2 (09:59→11:55)
[2020-06-26] MEDS: ASPirin 81 mg TAB PO SCH (10:00)
[2020-06-26] MEDS ORDERED: POTASSIUM EFFERVESENT TAB 25 MEQ PO ONE (14:30)
[2020-06-26] MEDS: Glucerna Carbsteady SHAKE Vanilla 8oz PO SCH (18:00)
[2020-06-26] MEDS ORDERED: TPN PER PHARMACY IV NR ×12 (20:00)
[2020-06-26] MEDS ORDERED: SODIUM CHLORIDE 0.9% 1,000 ML IV SCH (20:00)
[2020-06-26] MEDS: ATORVASTATIN 20 MG TAB PO SCH (21:53)
[2020-06-26] MEDS: INSULIN LANTUS (GLARGINE) 1 /0.01ml (100units/ml) SC SCH (21:54)
[2020-06-27] VITALS (15 sets, daily range): BP systolic 115–181; BP diastolic 48–101
[2020-06-27] MEDS: ACCU-CHEK COMFORT CURVE STRIP VI SCH ×5 (00:30→23:41)
[2020-06-27] MEDS: InsuLIN REG 1unit/0.01ml Soln (100units/ml) SC SCH ×5 (00:30→23:45)
[2020-06-27 04:54] LABS: Basophils # (auto) 0 10 ^3/uL (0-0.2); Basophils % (auto) 0.5 % (0.0-2.0); Eosinophils # (auto) 0.3 10 ^3/uL (0-0.8); Eosinophils % (auto) 3.3 % (0.0-7.0); Hematocrit 36.3 % (36.0-46.0); Hemoglobin 11.7 g/dL (12.2-16.2); Lymphocytes # (auto) 0.9 10 ^3/uL (0.4-5.4); Lymphocytes % (auto) 10.7 % (10.0-50.0); Mean Corpuscular Hgb Conc. 32.2 g/dL (32.0-36.0); Monocytes # (auto) 0.5 10 ^3/uL (0-1.3); Monocytes % (auto) 6.4 % (0.0-12.0); Neutrophils # (auto) 6.6 10 ^3/uL (1.6-8.6); Neutrophils % (auto) 79.1 % (37.0-80.0); Platelet Count (auto) 102 10^3/uL (140-450); Red Blood Cells 4.33 10^6/uL (4.0-5.20); Red Cell Distribution Width 15.9 % (11.8-14.3); White Blood Cell 8.4 10^3/uL (4.4-10.8)
[2020-06-27] MEDS: DOBUTamine 1000MCG/ML 250 ML IV SCH (05:00)
[2020-06-27 05:09] LABS: Potassium 4.1 mmol/L (3.5-5.1)
[2020-06-27 05:16] LABS: Albumin 1.8 g/dL (3.4-5.0); BUN/Creatinine Ratio 37.8; Bilirubin, Total 0.3 mg/dL (0.2-1.0); Calcium 8.4 mg/dL (8.5-10.1); Magnesium 2.4 mg/dL (1.6-2.6); Phosphorus 2.6 mg/dL (2.5-4.90); Total Protein 6.2 g/dL (6.4-8.2)
[2020-06-27] MEDS: LINEZOLID 600MG/300ML 300 ML IV SCH ×2 (05:30→16:51)
[2020-06-27] MEDS: MEROPENEM 1GM IVPB 100 ML IV SCH ×3 (06:30→22:10)
[2020-06-27] MEDS: Glucerna Carbsteady SHAKE Vanilla 8oz PO SCH ×3 (08:00→19:30)
[2020-06-27] MEDS: SODIUM CHLOR 0.9% PF (SALINE LOCK) 10ML VIAL/SYR IV SCH ×2 (09:24→22:10)
[2020-06-27] MEDS: FLUCONAZOLE 200MG/100ML 100 ML IV SCH ×2 (09:24→11:28)
[2020-06-27] MEDS: CLOPIDOGREL BISULFATE 75 MG TAB PO SCH (09:24)
[2020-06-27] MEDS: PANTOPRAZOLE 40 MG/10 ML VIAL INJ IV SCH (09:24)
[2020-06-27] MEDS: ASPirin 81 mg TAB PO SCH (09:33)
[2020-06-27] MEDS ORDERED: FUROSEMIDE 20 MG/2 ML VIAL IV ONE (10:15)
[2020-06-27] MEDS ORDERED: POTASSIUM EFFERVESENT TAB 25 MEQ PO ONE (10:15)
[2020-06-27] MEDS ORDERED: TPN PER PHARMACY IV NR ×10 (20:00)
[2020-06-27] MEDS: ATORVASTATIN 20 MG TAB PO SCH (22:10)
[2020-06-27] MEDS: INSULIN LANTUS (GLARGINE) 1 /0.01ml (100units/ml) SC SCH (22:13)
[2020-06-27] MEDS: ALPRAZolam 0.25 MG TAB PO PRN (22:19)
[2020-06-28] VITALS: BP 105/55
[2020-06-28 04:16] VITALS: BP 131/80
[2020-06-28 04:50] LABS: Basophils # (auto) 0 10 ^3/uL (0-0.2); Basophils % (auto) 0.5 % (0.0-2.0); Eosinophils # (auto) 0.2 10 ^3/uL (0-0.8); Eosinophils % (auto) 1.9 % (0.0-7.0); Hematocrit 39.2 % (36.0-46.0); Hemoglobin 12.6 g/dL (12.2-16.2); Lymphocytes # (auto) 1.1 10 ^3/uL (0.4-5.4); Lymphocytes % (auto) 10.9 % (10.0-50.0); Mean Corpuscular Hemoglobin 27.3 pg (28.0-32.0); Mean Corpuscular Hgb Conc. 32.2 g/dL (32.0-36.0); Mean Corpuscular Volume 84.7 fL (80.0-100.0); Monocytes # (auto) 0.5 10 ^3/uL (0-1.3); Monocytes % (auto) 5.1 % (0.0-12.0); Neutrophils # (auto) 8.6 10 ^3/uL (1.6-8.6); Neutrophils % (auto) 81.6 % (37.0-80.0); Platelet Count (auto) 115 10^3/uL (140-450); Red Blood Cells 4.63 10^6/uL (4.0-5.20); Red Cell Distribution Width 16.4 % (11.8-14.3); White Blood Cell 10.5 10^3/uL (4.4-10.8)
[2020-06-28 05:10] LABS: Albumin 2.1 g/dL (3.4-5.0); Calcium 8.5 mg/dL (8.5-10.1); Magnesium 2.6 mg/dL (1.6-2.6); Potassium 4.5 mmol/L (3.5-5.1)
[2020-06-28] MEDS: LINEZOLID 600MG/300ML 300 ML IV SCH ×2 (05:11→16:49)
[2020-06-28 05:16] LABS: BUN/Creatinine Ratio 47.8; Bilirubin, Total 0.4 mg/dL (0.2-1.0); Phosphorus 4.5 mg/dL (2.5-4.90); Total Protein 6.7 g/dL (6.4-8.2)
[2020-06-28] MEDS: ACCU-CHEK COMFORT CURVE STRIP VI SCH ×4 (05:32→23:51)
[2020-06-28] MEDS: InsuLIN REG 1unit/0.01ml Soln (100units/ml) SC SCH ×4 (05:34→23:52)
[2020-06-28] MEDS: MEROPENEM 1GM IVPB 100 ML IV SCH ×3 (06:30→21:02)
[2020-06-28 08:00] VITALS: BP 157/84
[2020-06-28] MEDS: Glucerna Carbsteady SHAKE Vanilla 8oz PO SCH ×3 (08:00→18:00)
[2020-06-28] MEDS: FLUCONAZOLE 200MG/100ML 100 ML IV SCH ×2 (09:16→12:05)
[2020-06-28] MEDS: FUROSEMIDE 40 MG/4 ML VIAL IV SCH (09:16)
[2020-06-28] MEDS: PANTOPRAZOLE 40 MG/10 ML VIAL INJ IV SCH (09:17)
[2020-06-28] MEDS: ASPirin 81 mg TAB PO SCH (09:17)
[2020-06-28] MEDS: SODIUM CHLOR 0.9% PF (SALINE LOCK) 10ML VIAL/SYR IV SCH ×2 (09:17→21:02)
[2020-06-28] MEDS: CLOPIDOGREL BISULFATE 75 MG TAB PO SCH (09:19)
[2020-06-28] MEDS ORDERED: POTASSIUM CHL 20 Meq TABLET PO SCH (10:00)
[2020-06-28] MEDS ORDERED: LORazepam 2MG/ML-1ML VIAL IV ONE (10:15)
[2020-06-28] MEDS ORDERED: CARVEDILOL 3.125 MG TAB PO ONE (11:30)
[2020-06-28] MEDS: ALPRAZolam 0.25 MG TAB PO PRN (11:35)
[2020-06-28 12:00] VITALS: BP 150/78
[2020-06-28] MEDS: LORazepam 2MG/ML-1ML VIAL IV PRN ×2 (12:33→23:52)
[2020-06-28 16:00] VITALS: BP 99/64
[2020-06-28 20:00] VITALS: BP 153/94
[2020-06-28] MEDS ORDERED: TPN PER PHARMACY IV NR ×10 (20:00)
[2020-06-28] MEDS: INSULIN LANTUS (GLARGINE) 1 /0.01ml (100units/ml) SC SCH (21:03)
[2020-06-28] MEDS: CARVEDILOL 3.125 MG TAB PO SCH (21:03)
[2020-06-28] MEDS: ATORVASTATIN 20 MG TAB PO SCH (21:03)
[2020-06-29] VITALS (11 sets, daily range): BP systolic 103–166; BP diastolic 45–92
[2020-06-29 03:49] LABS: Calcium 8.5 mg/dL (8.5-10.1); Potassium 5.2 mmol/L (3.5-5.1)
[2020-06-29 03:55] LABS: Albumin 2.1 g/dL (3.4-5.0); BUN/Creatinine Ratio 57.3; Bilirubin, Total 0.3 mg/dL (0.2-1.0); Magnesium 2.7 mg/dL (1.6-2.6); Phosphorus 4.9 mg/dL (2.5-4.90); Total Protein 6.5 g/dL (6.4-8.2)
[2020-06-29] MEDS: LINEZOLID 600MG/300ML 300 ML IV SCH (04:35)
[2020-06-29] MEDS ORDERED: FUROSEMIDE 20 MG/2 ML VIAL IV ONE (04:45)
[2020-06-29] MEDS: ACCU-CHEK COMFORT CURVE STRIP VI SCH ×4 (05:37→23:32)
[2020-06-29] MEDS: InsuLIN REG 1unit/0.01ml Soln (100units/ml) SC SCH ×4 (05:38→23:31)
[2020-06-29] MEDS: MEROPENEM 1GM IVPB 100 ML IV SCH ×2 (06:25→14:06)
[2020-06-29] MEDS: Glucerna Carbsteady SHAKE Vanilla 8oz PO SCH ×3 (08:00→18:00)
[2020-06-29] MEDS ORDERED: POTASSIUM CHL 20 Meq TABLET PO SCH (10:00)
[2020-06-29] MEDS: PANTOPRAZOLE 40 MG/10 ML VIAL INJ IV SCH (10:27)
[2020-06-29] MEDS: CLOPIDOGREL BISULFATE 75 MG TAB PO SCH (10:28)
[2020-06-29] MEDS: FLUCONAZOLE 200MG/100ML 100 ML IV SCH ×2 (10:28→12:15)
[2020-06-29] MEDS: ASPirin 81 mg TAB PO SCH (10:28)
[2020-06-29] MEDS: CARVEDILOL 3.125 MG TAB PO SCH ×2 (10:29→21:52)
[2020-06-29] MEDS: SODIUM CHLOR 0.9% PF (SALINE LOCK) 10ML VIAL/SYR IV SCH ×2 (10:29→21:53)
[2020-06-29] MEDS: FUROSEMIDE 40 MG/4 ML VIAL IV SCH ×2 (10:29→18:04)
[2020-06-29] MEDS: LORazepam 2MG/ML-1ML VIAL IV PRN ×2 (11:35→21:45)
[2020-06-29] MEDS ORDERED: IPRATROPIUM BROM 0.5 MG/2.5ML INH SOL NEB PRN (12:15)
[2020-06-29] MEDS ORDERED: ALBUTEROL SULF 2.5 MG/0.5ML(0.5%) NEB SOLN NEB PRN (12:15)
[2020-06-29] MEDS ORDERED: SODIUM CHLORIDE IV NR ×8 (20:00)
[2020-06-29] MEDS ORDERED: [UNRECOGNIZED DRUG - OTHER] IV NR ×8 (20:00)
[2020-06-29] MEDS ORDERED: FAT EMULSION IV NR ×8 (20:00)
[2020-06-29] MEDS ORDERED: MULTIPLE VITAMIN IV NR ×8 (20:00)
[2020-06-29] MEDS: metroNIDAZOLE 500 MG TAB PO SCH (21:46)
[2020-06-29] MEDS: ATORVASTATIN 20 MG TAB PO SCH (21:52)
[2020-06-29] MEDS: INSULIN LANTUS (GLARGINE) 1 /0.01ml (100units/ml) SC SCH (22:00)
[2020-06-30] VITALS (13 sets, daily range): BP systolic 95–134; BP diastolic 51–97
[2020-06-30 04:22] LABS: Potassium 5.4 mmol/L (3.5-5.1)
[2020-06-30 04:29] LABS: Albumin 2.1 g/dL (3.4-5.0); BUN/Creatinine Ratio 64.8; Bilirubin, Total 0.5 mg/dL (0.2-1.0); Calcium 8.5 mg/dL (8.5-10.1); Total Protein 6.3 g/dL (6.4-8.2)
[2020-06-30] MEDS: InsuLIN REG 1unit/0.01ml Soln (100units/ml) SC SCH ×4 (05:13→23:45)
[2020-06-30] MEDS: ACCU-CHEK COMFORT CURVE STRIP VI SCH ×4 (05:14→23:45)
[2020-06-30] MEDS: FUROSEMIDE 40 MG/4 ML VIAL IV SCH (05:16)
[2020-06-30] MEDS: metroNIDAZOLE 500 MG TAB PO SCH ×3 (05:17→21:41)
[2020-06-30] MEDS: LORazepam 2MG/ML-1ML VIAL IV PRN (07:45)
[2020-06-30] MEDS: Glucerna Carbsteady SHAKE Vanilla 8oz PO SCH ×3 (08:00→18:00)
[2020-06-30] MEDS: SODIUM CHLOR 0.9% PF (SALINE LOCK) 10ML VIAL/SYR IV SCH ×2 (10:00→21:40)
[2020-06-30] MEDS: FLUCONAZOLE 100 MG TAB PO SCH (10:00)
[2020-06-30] MEDS: PANTOPRAZOLE 40 MG/10 ML VIAL INJ IV SCH (11:02)
[2020-06-30] MEDS: ASPirin 81 mg TAB PO SCH (14:52)
[2020-06-30] MEDS: levoFLOXacin 500 MG TAB PO SCH (14:52)
[2020-06-30] MEDS: CARVEDILOL 3.125 MG TAB PO SCH ×2 (14:52→21:41)
[2020-06-30] MEDS: CLOPIDOGREL BISULFATE 75 MG TAB PO SCH (14:52)
[2020-06-30] MEDS: ALPRAZolam 0.25 MG TAB PO PRN (14:54)
[2020-06-30] MEDS: ATORVASTATIN 20 MG TAB PO SCH (21:42)
[2020-07-01] VITALS (14 sets, daily range): BP systolic 113–142; BP diastolic 45–83
[2020-07-01 03:34] LABS: Basophils # (auto) 0.1 10 ^3/uL (0-0.2); Basophils % (auto) 1.1 % (0.0-2.0); Eosinophils # (auto) 0.3 10 ^3/uL (0-0.8); Eosinophils % (auto) 3.5 % (0.0-7.0); Hematocrit 34.4 % (36.0-46.0); Hemoglobin 11.2 g/dL (12.2-16.2); Lymphocytes # (auto) 1.3 10 ^3/uL (0.4-5.4); Lymphocytes % (auto) 17.7 % (10.0-50.0); Mean Corpuscular Hemoglobin 27.4 pg (28.0-32.0); Mean Corpuscular Hgb Conc. 32.6 g/dL (32.0-36.0); Monocytes # (auto) 0.7 10 ^3/uL (0-1.3); Monocytes % (auto) 9.7 % (0.0-12.0); Neutrophils # (auto) 4.9 10 ^3/uL (1.6-8.6); Nucleated Red Blood Cells % 0.1 %; Platelet Count (auto) 157 10^3/uL (140-450); Red Cell Distribution Width 16.2 % (11.8-14.3); White Blood Cell 7.2 10^3/uL (4.4-10.8)
[2020-07-01 03:57] LABS: Potassium 5.2 mmol/L (3.5-5.1)
[2020-07-01 04:02] LABS: BUN/Creatinine Ratio 63.2; Calcium 8.8 mg/dL (8.5-10.1)
[2020-07-01] MEDS: InsuLIN REG 1unit/0.01ml Soln (100units/ml) SC SCH ×3 (06:00→17:47)
[2020-07-01] MEDS: ACCU-CHEK COMFORT CURVE STRIP VI SCH ×3 (06:21→17:46)
[2020-07-01] MEDS: metroNIDAZOLE 500 MG TAB PO SCH ×3 (06:22→21:51)
[2020-07-01] MEDS: Glucerna Carbsteady SHAKE Vanilla 8oz PO SCH ×3 (07:46→17:46)
[2020-07-01] MEDS: SODIUM CHLOR 0.9% PF (SALINE LOCK) 10ML VIAL/SYR IV SCH ×2 (09:50→21:50)
[2020-07-01] MEDS: FLUCONAZOLE 100 MG TAB PO SCH (09:50)
[2020-07-01] MEDS: ASPirin 81 mg TAB PO SCH (10:09)
[2020-07-01] MEDS: PANTOPRAZOLE 40 MG/10 ML VIAL INJ IV SCH (10:09)
[2020-07-01] MEDS: levoFLOXacin 500 MG TAB PO SCH (10:10)
[2020-07-01] MEDS: CARVEDILOL 3.125 MG TAB PO SCH ×2 (10:10→21:50)
[2020-07-01] MEDS: CLOPIDOGREL BISULFATE 75 MG TAB PO SCH (10:10)
[2020-07-01] MEDS: ALPRAZolam 0.25 MG TAB PO PRN (10:37)
[2020-07-01] MEDS: ATORVASTATIN 20 MG TAB PO SCH (21:52)
[2020-07-02] VITALS (17 sets, daily range): BP systolic 112–148; BP diastolic 48–83
[2020-07-02] MEDS: ALPRAZolam 0.25 MG TAB PO PRN
[2020-07-02 05:20] LABS: Albumin 2.1 g/dL (3.4-5.0); Calcium 7.4 mg/dL (8.5-10.1); Potassium 5.3 mmol/L (3.5-5.1)
[2020-07-02 05:22] LABS: BUN/Creatinine Ratio 51.5
[2020-07-02 05:25] LABS: Bilirubin, Total 0.4 mg/dL (0.2-1.0); Total Protein 6.2 g/dL (6.4-8.2)
[2020-07-02] MEDS: InsuLIN REG 1unit/0.01ml Soln (100units/ml) SC SCH ×5 (06:00→23:41)
[2020-07-02] MEDS: ACCU-CHEK COMFORT CURVE STRIP VI SCH ×5 (06:00→23:43)
[2020-07-02] MEDS: metroNIDAZOLE 500 MG TAB PO SCH ×3 (06:00→22:00)
[2020-07-02] MEDS: levoFLOXacin 500 MG TAB PO SCH (09:02)
[2020-07-02] MEDS: FLUCONAZOLE 100 MG TAB PO SCH (09:02)
[2020-07-02] MEDS: ASPirin 81 mg TAB PO SCH (09:03)
[2020-07-02] MEDS: FUROSEMIDE 40 MG TAB PO SCH (09:03)
[2020-07-02] MEDS: CLOPIDOGREL BISULFATE 75 MG TAB PO SCH (09:04)
[2020-07-02] MEDS: PANTOPRAZOLE 40 MG TAB PO SCH (09:05)
[2020-07-02] MEDS: Glucerna Carbsteady SHAKE Vanilla 8oz PO SCH ×3 (09:05→17:36)
[2020-07-02] MEDS: CARVEDILOL 3.125 MG TAB PO SCH ×2 (09:05→22:00)
[2020-07-02] MEDS: SODIUM CHLOR 0.9% PF (SALINE LOCK) 10ML VIAL/SYR IV SCH ×2 (09:05→22:00)
[2020-07-02] MEDS: ATORVASTATIN 20 MG TAB PO SCH (22:00)
[2020-07-03] VITALS (10 sets, daily range): BP systolic 114–134; BP diastolic 39–74
[2020-07-03] MEDS: InsuLIN REG 1unit/0.01ml Soln (100units/ml) SC SCH ×4 (06:00→23:40)
[2020-07-03] MEDS: metroNIDAZOLE 500 MG TAB PO SCH ×3 (06:00→22:28)
[2020-07-03] MEDS: ACCU-CHEK COMFORT CURVE STRIP VI SCH ×4 (06:00→23:24)
[2020-07-03] MEDS: Glucerna Carbsteady SHAKE Vanilla 8oz PO SCH ×3 (08:00→18:20)
[2020-07-03] MEDS: levoFLOXacin 500 MG TAB PO SCH (10:08)
[2020-07-03] MEDS: CLOPIDOGREL BISULFATE 75 MG TAB PO SCH (10:08)
[2020-07-03] MEDS: FLUCONAZOLE 100 MG TAB PO SCH (10:08)
[2020-07-03] MEDS: ASPirin 81 mg TAB PO SCH (10:08)
[2020-07-03] MEDS: FUROSEMIDE 40 MG TAB PO SCH (10:08)
[2020-07-03] MEDS: SODIUM CHLOR 0.9% PF (SALINE LOCK) 10ML VIAL/SYR IV SCH ×2 (10:09→22:28)
[2020-07-03] MEDS: PANTOPRAZOLE 40 MG TAB PO SCH (10:09)
[2020-07-03] MEDS: CARVEDILOL 3.125 MG TAB PO SCH ×2 (10:09→22:28)
[2020-07-03] MEDS: ALPRAZolam 0.25 MG TAB PO PRN (20:56)
[2020-07-03] MEDS: ATORVASTATIN 20 MG TAB PO SCH (22:29)
[2020-07-04 05:00] VITALS: BP_SYST 129; BP_SYST 192; BP_DIAS 80
[2020-07-04] MEDS: ACCU-CHEK COMFORT CURVE STRIP VI SCH ×3 (05:47→18:46)
[2020-07-04] MEDS: metroNIDAZOLE 500 MG TAB PO SCH ×3 (05:47→21:47)
[2020-07-04] MEDS: InsuLIN REG 1unit/0.01ml Soln (100units/ml) SC SCH ×2 (05:51→12:00)
[2020-07-04 09:02] VITALS: BP 120/65
[2020-07-04] MEDS: SODIUM CHLOR 0.9% PF (SALINE LOCK) 10ML VIAL/SYR IV SCH ×2 (09:20→21:47)
[2020-07-04] MEDS: Glucerna Carbsteady SHAKE Vanilla 8oz PO SCH ×3 (09:20→18:45)
[2020-07-04] MEDS: ASPirin 81 mg TAB PO SCH (09:20)
[2020-07-04] MEDS: FLUCONAZOLE 100 MG TAB PO SCH (09:21)
[2020-07-04] MEDS: FUROSEMIDE 40 MG TAB PO SCH (09:21)
[2020-07-04] MEDS: CARVEDILOL 3.125 MG TAB PO SCH ×2 (09:21→21:47)
[2020-07-04] MEDS: CLOPIDOGREL BISULFATE 75 MG TAB PO SCH (09:22)
[2020-07-04] MEDS: PANTOPRAZOLE 40 MG TAB PO SCH (09:22)
[2020-07-04] MEDS: levoFLOXacin 500 MG TAB PO SCH (09:22)
[2020-07-04] MEDS: ACETAMINOPHEN 325 MG TAB PO PRN ×2 (09:23→21:47)
[2020-07-04 13:00] VITALS: BP 112/71
[2020-07-04 16:33] VITALS: BP 115/66
[2020-07-04] MEDS: ATORVASTATIN 20 MG TAB PO SCH (21:47)
[2020-07-04 22:00] VITALS: BP 144/96
[2020-07-05] MEDS: ACCU-CHEK COMFORT CURVE STRIP VI SCH ×2 (00:13→05:46)
[2020-07-05 05:35] VITALS: BP 134/76
[2020-07-05] MEDS: InsuLIN REG 1unit/0.01ml Soln (100units/ml) SC SCH ×2 (05:46)
[2020-07-05] MEDS: metroNIDAZOLE 500 MG TAB PO SCH (05:46)
[2020-07-05] MEDS: Glucerna Carbsteady SHAKE Vanilla 8oz PO SCH (08:29)
[2020-07-05] MEDS: SODIUM CHLOR 0.9% PF (SALINE LOCK) 10ML VIAL/SYR IV SCH (08:30)
[2020-07-05] MEDS: CARVEDILOL 3.125 MG TAB PO SCH (08:30)
[2020-07-05] MEDS: ASPirin 81 mg TAB PO SCH (08:30)
[2020-07-05] MEDS: FUROSEMIDE 40 MG TAB PO SCH (08:31)
[2020-07-05] MEDS: FLUCONAZOLE 100 MG TAB PO SCH (08:31)
[2020-07-05] MEDS: levoFLOXacin 500 MG TAB PO SCH (08:31)
[2020-07-05] MEDS: CLOPIDOGREL BISULFATE 75 MG TAB PO SCH (08:32)
[2020-07-05] MEDS: ACETAMINOPHEN 325 MG TAB PO PRN (08:32)
[2020-07-05] MEDS: PANTOPRAZOLE 40 MG TAB PO SCH (08:32)
[2020-07-05 09:00] VITALS: BP 137/74
[2020-07-05] MEDS ORDERED: SACUBITRIL-VALSARTAN 24mg/26mg TAB PO SCH (10:00)
[2020-07-05] MEDS ORDERED: ATOR10TA52 PO (13:00)
[2020-07-05] MEDS ORDERED: LEVO50TA7 PO (13:00)
[2020-07-05] MEDS ORDERED: FURO40TA4 PO (13:00)
[2020-07-05] MEDS ORDERED: ASPI81CH43 PO (13:00)
[2020-07-05] MEDS ORDERED: CLOP75TA41 PO (13:00)
[2020-07-05] MEDS ORDERED: CAR3125T PO (13:00)
[2020-07-05] MEDS ORDERED: PANT40T PO (13:00)
[2020-07-05] MEDS ORDERED: SACU1TAB PO (13:00)
[2020-07-05 14:10] LABS: BUN/Creatinine Ratio 22.1; Calcium 9.3 mg/dL (8.5-10.1); Potassium 4.4 mmol/L (3.5-5.1)
== END 2020-07-05 16:45 | disposition home or self-care (01) | DRG 853 ==
LOC: ER 07:21 → EDBD 07:21 → OVERFLOW 07:22 → DOU IN ICU 06-19 14:30 → TELE-CENTR 07-03 11:32
PROVIDERS: ADMIT Hospitalist; ATTEND Internal Medicine
PROC: 027035Z Dilation of Coronary Artery, One Artery with Two Drug-eluting Intraluminal Devices, Percutaneous Approach (ICD-10-PCS; 2020-06-19)
PROC: 5A1955Z Respiratory Ventilation, Greater than 96 Consecutive Hours (ICD-10-PCS; 2020-06-19)
PROC: 0BH17EZ Insertion of Endotracheal Airway into Trachea, Via Natural or Artificial Opening (ICD-10-PCS; 2020-06-19)
PROC: 4A023N7 Measurement of Cardiac Sampling and Pressure, Left Heart, Percutaneous Approach (ICD-10-PCS; 2020-06-19)
PROC: B2111ZZ Fluoroscopy of Multiple Coronary Arteries using Low Osmolar Contrast (ICD-10-PCS; 2020-06-19)
PROC: B2151ZZ Fluoroscopy of Left Heart using Low Osmolar Contrast (ICD-10-PCS; 2020-06-19)
PROC: 02HV33Z Insertion of Infusion Device into Superior Vena Cava, Percutaneous Approach (ICD-10-PCS; 2020-06-20)
PROC: 5A09357 Assistance with Respiratory Ventilation, Less than 24 Consecutive Hours, Continuous Positive Airway Pressure (ICD-10-PCS; 2020-06-29)
PROC: 5A09357 Assistance with Respiratory Ventilation, Less than 24 Consecutive Hours, Continuous Positive Airway Pressure (ICD-10-PCS; principal; 2020-06-30)
DX: A41.9 Sepsis, unspecified organism (principal); I21.3 ST elevation (STEMI) myocardial infarction of unspecified site; J96.01 Acute respiratory failure with hypoxia; R65.21 Severe sepsis with septic shock; J69.0 Pneumonitis due to inhalation of food and vomit; E43 Unspecified severe protein-calorie malnutrition; I50.43 Acute on chronic combined systolic (congestive) and diastolic (congestive) heart failure; N17.0 Acute kidney failure with tubular necrosis; G93.41 Metabolic encephalopathy; I46.9 Cardiac arrest, cause unspecified; K81.0 Acute cholecystitis; Z68.43 Body mass index [BMI] 50.0-59.9, adult; I13.0 Hypertensive heart and chronic kidney disease with heart failure and stage 1 through stage 4 chronic kidney disease, or unspecified chronic kidney disease; N39.0 Urinary tract infection, site not specified; J98.11 Atelectasis; E66.2 Morbid (severe) obesity with alveolar hypoventilation; E11.21 Type 2 diabetes mellitus with diabetic nephropathy; E11.65 Type 2 diabetes mellitus with hyperglycemia; S88.911D Complete traumatic amputation of right lower leg, level unspecified, subsequent encounter; E11.40 Type 2 diabetes mellitus with diabetic neuropathy, unspecified; I73.9 Peripheral vascular disease, unspecified; I25.5 Ischemic cardiomyopathy; J44.9 Chronic obstructive pulmonary disease, unspecified; N18.3 Chronic kidney disease, stage 3 (moderate); E87.5 Hyperkalemia; E03.9 Hypothyroidism, unspecified; E11.22 Type 2 diabetes mellitus with diabetic chronic kidney disease; E11.51 Type 2 diabetes mellitus with diabetic peripheral angiopathy without gangrene; E78.5 Hyperlipidemia, unspecified; E87.6 Hypokalemia; F17.200 Nicotine dependence, unspecified, uncomplicated; F32.9 Major depressive disorder, single episode, unspecified; I25.10 Atherosclerotic heart disease of native coronary artery without angina pectoris; I25.2 Old myocardial infarction; Z95.5 Presence of coronary angioplasty implant and graft; Z89.612 Acquired absence of left leg above knee; Z89.611 Acquired absence of right leg above knee; Z89.511 Acquired absence of right leg below knee; Z89.512 Acquired absence of left leg below knee; Z83.3 Family history of diabetes mellitus; Z82.49 Family history of ischemic heart disease and other diseases of the circulatory system; Z80.9 Family history of malignant neoplasm, unspecified; Z79.899 Other long term (current) drug therapy; Z79.82 Long term (current) use of aspirin; Z79.02 Long term (current) use of antithrombotics/antiplatelets; Z79.4 Long term (current) use of insulin; K82.8 Other specified diseases of gallbladder; Z20.828 Contact with and (suspected) exposure to other viral communicable diseases; D63.1 Anemia in chronic kidney disease
CPT/HCPCS: 36415; 36569; 36600; 70450; 71045; 71250; 74176; 76700; 76705; 80048; 80053; 80061; 81001; 82040; 82270; 82565; 82570; 82728; 82805; 82962; 83036; 83540; 83550; 83605; 83615; 83735; 83880; 84100; 84132; 84156; 84300; 84443; 84478; 84484; 85007; 85025; 85027; 85379; 85610; 85730; 86141; 86850; 86900; 86901; 86920; 87040; 87070; 87077; 87086; 87205; 87426; 92610; 93005; 93306; 93971; 94002; 94003; 94640; 94660; 95819; 96361; 96374; 96375; 97110; 97163; 97530; 99152; 99153; A4565; C1874; C1887; C9113; G0378; J0330; J1335; J1450; J1815; J2185; J2250; J2543; J3470; J3480; J3490; J7060; J7131; Q9967